=== PATIENT | male | born 2000 | race Caucasian/White ===

== ENCOUNTER 2021-02-08 03:59 | Emergency (ER) | payer OTHER, SELFPAY ==
--- NOTE | ~2021-02-08 | XR_ITS ---
EXAMINATION: XR ankle LT 2V DATE: 02/08/2021 04:55 INDICATION: Left ankle pain TECHNIQUE: Two views of the ankle were obtained. COMPARISON: None. FINDINGS: There is no fracture, dislocation, or subluxation. The bones, soft tissues, and joint space s are normal. IMPRESSION: 1. No acute osseous abnormality. Reviewed, dictated and finalized at location A.
[2021-02-08 04:02] VITALS: BP 140/88; PULSE 88; RESP 20; TEMP 36.6; O2SAT 98
--- NOTE | 2021-02-08 04:27 | ED.WOUNDLAC ---
HPI - Wound/Laceration General Chief Complaint: Burn/Smoke Inhalation Stated Complaint: burn Time Seen by Provider: 02/08/21 04:25 Source: patient Mode of arrival: ambulatory Limitations: no limitations History of Present Illness HPI narrative: Patient comes in after a fall at work. He works at [employer] and fell at work hitting his right forearm briefly on the grill. He has what appears to be a second degree burn to his right anterior forearm which extends nearly the full length of the forearm. Onset (ago): hour(s) Location: other (right forearm) Place: work Patient tetanus UTD: Yes Context: accidental Associated symptoms: pain Related Data Allergies Allergy/AdvReac Type Severity Reaction Status Date / Time Sulfa (Sulfonamide Allergy Mild Verified 09/12/13 10:28 Antibiotics) clindamycin Allergy Verified 09/12/13 11:08 bacitracin AdvReac Mild RASH, Verified 09/12/13 10:28 ITCHING gramicidin D AdvReac Mild RASH, Verified 09/12/13 10:28 ITCHING polymyxin B AdvReac Mild RASH, Verified 09/12/13 10:28 ITCHING BACITRACIN ZINC AdvReac Mild RASH, Uncoded 09/12/13 10:28 ITCHING NEOMYCIN SULFATE AdvReac Mild RASH, Uncoded 09/12/13 10:28 ITCHING POLYMYXIN B SULFATE AdvReac Mild RASH, Uncoded 09/12/13 10:28 ITCHING Review of Systems Constitutional: Constitutional: Reports no additional constitutional complaints Eyes: Eyes: Reports no additional eye complaints ENT: Reports system reviewed and no additional complaints, except as documented Cardiovascular: Cardiovascular: Reports no additional cardiovascular complaints Respiratory: Respiratory: Reports no additional respiratory complaints Gastrointestinal: Gastrointestinal: Reports no additional gastrointestinal complaints Genitourinary: Genitourinary: Reports no additional male genitourinary complaints Musculoskeletal: Musculoskeletal: Reports no additional musculoskeletal complaints Integumentary/Breasts: Skin/Breast: Reports system reviewed and no additional complaints, except as docu Neurologic: Reports system reviewed and no additional complaints, except as documented Psychiatric: Psychiatric: Reports no additional psychiatric complaints Endocrine: Endocrine: Reports no additional endocrine complaints Hematologic/Lymphatic: Hematologic/Lymphatic: Reports no additional hematologic/lymphatic complaints Allergic/Immunologic: Allergic/Immunologic: Reports no additional allergic/immunologic complaints PMFSH Past Medical History Medical History (Updated 02/08/21 @ 05:33 by Cyril Emanuel MD) No significant past medical history Surgical History Surgical History (Updated 02/08/21 @ 05:33 by Cyril Emanuel MD) No significant past surgical history Family History Family History (Updated 02/08/21 @ 05:37 by Cyril Emanuel MD) Mother Protein S deficiency Father CLL (chronic lymphocytic leukemia) Diabetes mellitus Hyperlipidemia Social History Social History (Updated 02/08/21 @ 05:37 by Cyril Emanuel MD) Smoking status: Never smoker Alcohol intake: never Substance use: never Living arrangements: with family Gender identity (if verbalized by the patient): Male Sexual Orientation (if Verbalized by the Patient): Straight or Heterosexual Exam Const: General: no acute distress and alert Orientation/consciousness: patient oriented x3 HENMT: Head: normal to inspection Ears: external ears normal General nose exam: Normal external nose present Mouth: Yes Normal oral and palatal mucosa present Throat: posterior oropharynx normal Eyes: Conjunctivae: conjunctivae normal Neck: Neck: normal visual inspection Chest: Chest palpation & inspection: normal inspection of the chest Resp: Effort & Inspection: normal respiratory effort Auscultation: clear to auscultation bilaterally Cardio: Rate: regular rate Rhythm: regular rhythm GI: GI Palp: Yes Soft to palpation (nontender) Back/Spine/Pelvis: Back: n
[2021-02-08] MEDS: SILVER SULFADIAZINE 1% CR 50 GM JAR (*BKC) 1 APPLIC TOPICAL (04:53)
[2021-02-08 05:17] VITALS: BP 140/88; PULSE 74; RESP 20; TEMP 36.6; O2SAT 98
== END 2021-02-08 05:19 | disposition home or self-care (01) ==
PROVIDERS: Emergency Provider Emergency Medicine
DX: T22.211A Burn of second degree of right forearm, initial encounter (principal); X19.XXXA Contact with other heat and hot substances, initial encounter
CPT/HCPCS: 73600; 99283; A9270

== ENCOUNTER 2021-05-13 15:58 | Emergency (ER) | payer OTHER, SELFPAY | END 2021-05-13 18:15 | disposition left against medical advice (07) | PROVIDERS: Emergency Provider Emergency Medicine; PCP Family Medicine | DX: Z53.21 Procedure and treatment not carried out due to patient leaving prior to being seen by health care provider (principal) | CPT/HCPCS: 99199 ==

== ENCOUNTER 2021-05-13 18:45 | Inpatient (IN) | payer OTHER, SELFPAY ==
--- NOTE | ~2021-05-13 | MR_ITS ---
EXAMINATION: MR cervical spine wo/w con DATE: 05/14/2021 12:42 INDICATION: Ataxia. TECHNIQUE: Magnetic resonance imaging (MRI) of the cervical spine was performed without and with 20 m L MultiHance intravenous contrast. Sequences included sagittal and axial T2-weighted FSE, sagittal T2 -weighted FS FSE, and sagittal and axial T1-weighted FSE. Postcontrast sequences included sagittal an d axial T1-weighted FS FSE. COMPARISON: None FINDINGS: Bone alignment is normal. Vertebral body heights and intervertebral disc heights are normal . There are multiple ill-defined lesions of increased T2-weighted signal intensity in the cervical sp inal cord without contrast enhancement. The following disc levels are specifically discussed: C2-C3: The disc does not extend beyond the endplate margin. There is no uncovertebral joint osteoarth ritis. There is mild bilateral facet joint osteoarthritis. There is no neural foraminal stenosis. The re is no central canal stenosis. C3-C4: There is a central extrusion. There is mild bilateral uncovertebral joint osteoarthritis. Ther e is no facet joint osteoarthritis. There is no neural foraminal stenosis. There is mild central gianna l stenosis. C4-C5: There is a right foraminal protrusion. There is mild right uncovertebral joint osteoarthritis. There is no facet joint osteoarthritis. There is mild right neural foraminal stenosis. There is no c entral canal stenosis. C5-C6: The disc does not extend beyond the endplate margin. There is no uncovertebral joint osteoarth ritis. There is mild right facet joint osteoarthritis. There is no neural foraminal stenosis. There i s no central canal stenosis. C6-C7: The disc does not extend beyond the endplate margin. There is no uncovertebral joint osteoarth ritis. There is no facet joint osteoarthritis. There is no neural foraminal stenosis. There is no yesica tral canal stenosis. C7-T1: The disc does not extend beyond the endplate margin. There is no uncovertebral joint osteoarth ritis. There is no facet joint osteoarthritis. There is no neural foraminal stenosis. There is no yesica tral canal stenosis. IMPRESSION: 1. Multiple nonenhancing spinal cord lesions, likely multiple sclerosis. Reviewed, dictated and finalized at location A.
--- NOTE | ~2021-05-13 | XR_ITS ---
EXAMINATION: XR lumbar puncture diagnostic DATE: 05/15/2021 12:10 INDICATION: Ataxia. Dizziness. TECHNIQUE: The procedure including the risks, benefits, and alternatives was discussed with the patie nt. Risks discussed included spinal headache, cerebrospinal fluid leak, bleeding, and infection. The patient understood the risks and agreed to proceed. A timeout was performed to verify the patient' s name, date of , and procedure to be performed. The skin overlying the L3-L4 level was prepped and draped in usual sterile fashion. Subcutaneous 1% lidocaine was used for local anesthesia. A 20 gauge spinal needle was advanced under fluoroscopic guidance. The needle was removed and the entry s ite was cleaned and dressed. There were no immediate complications. Fluoroscopy exposure time was 0. 1 minutes. The total number of images was 2. FINDINGS: Real-time fluoroscopy demonstrates the needle at the L3-L4 level. The opening pressure was 14 cm water (Normal range is variably defined as 6-20 cm water and up to 25 cm water in obese patient s. Pressure >25 cm water is one of the modified Dandy criteria for idiopathic intracranial hypertensi on). 14 mL of clear, colorless fluid was collected in 4 tubes. IMPRESSION: 1. Successful fluoro-guided lumbar puncture. Reviewed, dictated and finalized at location A.
--- NOTE | ~2021-05-13 | CT_ITS ---
EXAMINATION: CT brain wo con EXAM DATE: 05/13/2021 20:05 INDICATION: Dizziness for 4 months. Balance changes . TECHNIQUE: Spiral CT of the head was performed without contrast. Axial, coronal and sagittal images were reviewed. The dose-length product (DLP) for this examination was 681.00 mGy-cm. The exposure w as tailored according to patient size, and iterative reconstruction (ASIR) was used as additional dos e reduction technique. There is no prior study for comparison. FINDINGS: There is slightly low density white matter region measuring about 1 cm indicated on axial i mage 34, a non-specific finding with differential diagnosis including migraine headaches, demyelinati ng disease such as multiple sclerosis or acute disseminated encephalomyelitis (ADEM), vasculopathy, l yme's disease or reactive astrocytosis (gliosis) secondary to nonspecific etiology. A follow-up nonem ergent brain MRI without and with contrast should be obtained. No other regions of abnormal density. There is no acute intraparenchymal hemorrhage. No evidence of intraparenchymal brain mass lesion. No evidence of acute infarction. There is no mass effect or mid line shift. The ventricles are normal in size. There are no extra-axial collections. There are no acute calvarial fractures. The orbits are unremarkable. Soft tissue is unremarkable. The visualized sinuses and mastoid air cells are well aerated. IMPRESSION: Possible nonspecific white matter abnormality, some considerations above. Follow-up nonem ergent brain MRI without and with contrast should be obtained. Reviewed, dictated and finalized at location A. IMPRESSION: Possible nonspecific white matter abnormality, some considerations above. Follow-up nonemergent brain MRI without and with contrast should be obta ined.
--- NOTE | ~2021-05-13 | MR_ITS ---
EXAMINATION: MR brain/brain stem wo/w con DATE: 05/14/2021 12:41 INDICATION: Ataxia. TECHNIQUE: Magnetic resonance imaging (MRI) of the brain and brainstem was performed without and with 20 mL MultiHance intravenous contrast. Sequences included sagittal and axial T1-weighted FSE, axial diffusion-weighted FS EPI, axial T2*-weighted GRE, axial T2-weighted FLAIR Propeller, and axial T2-we ighted Propeller. Postcontrast sequences included axial, sagittal, and coronal T1-weighted FSE. Appar ent diffusion coefficient (ADC) maps were created. COMPARISON: Head CT 05/13/2021 FINDINGS: There is no acute ischemic infarct or intracranial hemorrhage. There are greater than 10 en hancing lesions in the brain with involvement of the deep cerebral white matter, right temporal subco rtical white matter, left side of the mónica, and right cerebellar white matter. The largest enhancing lesion measures 13 x 7 mm in the left frontoparietal deep white matter and demonstrates surrounding i ncreased T2-weighted signal intensity. There are many nonenhancing lesions of increased T2-weighted s ignal intensity involving the bilateral periventricular cerebral white matter and bilateral cerebella r white matter. The ventricles are normal in size. The orbits are normal. The paranasal sinuses are c lear. The mastoid air cells are normal. IMPRESSION: 1. Multifocal brain disease, likely multiple sclerosis. Reviewed, dictated and finalized at location A.
[2021-05-13 18:58] VITALS: BP 151/100; PULSE 74; RESP 17; TEMP 37; O2SAT 100
[2021-05-13] MEDS: MECLIZINE HCL 25 MG TABLET PO (20:19)
[2021-05-13 20:21] VITALS: BP 142/72; PULSE 72
[2021-05-13 20:23] VITALS: BP 153/90; PULSE 78
[2021-05-13 20:25] VITALS: BP 141/93; PULSE 77
--- NOTE | 2021-05-13 20:48 | ED.DIZZY ---
HPI - Dizziness General Chief Complaint: Dizziness Stated Complaint: dizziness Time Seen by Provider: 05/13/21 19:30 Source: patient Mode of arrival: ambulatory Limitations: no limitations History of Present Illness HPI Narrative: Patient presents with chief complaint of issues with dizziness and balance that has been going on since January. Patient's mother states that when she was walking beside the patient that she noticed he was not moving his feet and picking them up and down normally. Patient denies having any head injury. Patient states that first he thought it was due to taking allergy issues that was causing his dizziness when he goes to stand up or move. He denies any changes to his vision or hearing. Patient denies any nausea or vomiting. Patient denies any fever, chills, chest pain, shortness of breath, abdominal pain. Patient denies having any health issues other than seasonal allergies and wisdom teeth removal. Related Data Allergies Allergy/AdvReac Type Severity Reaction Status Date / Time Sulfa (Sulfonamide Allergy Mild Verified 09/12/13 10:28 Antibiotics) clindamycin Allergy Verified 09/12/13 11:08 bacitracin AdvReac Mild RASH, Verified 09/12/13 10:28 ITCHING gramicidin D AdvReac Mild RASH, Verified 09/12/13 10:28 ITCHING polymyxin B AdvReac Mild RASH, Verified 09/12/13 10:28 ITCHING BACITRACIN ZINC AdvReac Mild RASH, Uncoded 09/12/13 10:28 ITCHING NEOMYCIN SULFATE AdvReac Mild RASH, Uncoded 09/12/13 10:28 ITCHING POLYMYXIN B SULFATE AdvReac Mild RASH, Uncoded 09/12/13 10:28 ITCHING Review of Systems Review of Systems: CONSTITUTIONAL: Denies fever, chills, or sweats. EYES: Denies visual changes, redness, or discharge. ENT: Denies rhinorrhea, congestion, sore throat, or otalgia. CARDIOVASCULAR: Denies chest pain, palpitations, or edema. RESPIRATORY: Denies cough or dyspnea. GASTROINTESTINAL: Denies abdominal pain, nausea, vomiting, or diarrhea. GENITOURINARY: Denies dysuria or hematuria. SKIN: Denies rash or itching. MUSCULOSKELETAL: Denies back pain, joint pain, or myalgia. NEUROLOGIC: Reports dizziness and issues of balance denies headache, numbness, or weakness. PSYCHIATRIC: Denies anxiety or depression. PMFSH Past Medical History Medical History (Updated 05/13/21 @ 21:09 by Richar Rodriguez PA-C) No significant past medical history Surgical History Surgical History (Updated 02/08/21 @ 05:33 by Cyril Emanuel MD) No significant past surgical history Family History Family History (Updated 02/08/21 @ 05:37 by Cyril Emanuel MD) Mother Protein S deficiency Father CLL (chronic lymphocytic leukemia) Diabetes mellitus Hyperlipidemia Social History Social History (Updated 02/08/21 @ 05:37 by Cyril Emanuel MD) Smoking status: Never smoker Alcohol intake: never Substance use: never Gender identity (if verbalized by the patient): Male Sexual Orientation (if Verbalized by the Patient): Straight or Heterosexual Exam Narrative: GENERAL: Well-appearing, well-nourished, and in no acute distress. HEAD: Normocephalic, atraumatic. EYES: PERRLA and EOMI. ENT: Nares clear, no rhinorrhea or epistaxis. Mucous membranes moist. Oropharynx without tonsillar hypertrophy exudate or other lesions. Bilateral TMs pearly gaona nonbulging. No hemotympanum. NECK: Supple. No adenopathy or masses. Range of motion intact CHEST: Clear to auscultation. No respiratory distress. No wheezes rales or rhonchi HEART: Regular rate and rhythm. No murmur heard. Normal peripheral pulses. EXTREMITIES: Normal range of motion. No edema. SKIN: Warm, dry, no rash. NEURO: No SPEECH deficits. Alert and oriented x3. finger nose test normal. Patient displays difficulty with balance. He is able to ambulate. with pronator test patient bobs. PSYCH: Normal mood and affect. Course Vital Signs Vital signs: Vital Signs Temperature 98.6 F 05/13/21 18:58 Pulse Rate 74 05/13/21 18:58 Respirato
[2021-05-13 21:39] VITALS: BP 114/68; PULSE 60; RESP 16; O2SAT 100
--- NOTE | 2021-05-13 21:55 | PM.IMHP ---
H&P: HPI History of Present Illness Date/Time: 05/13/21 21:55 Chief Complaint: Dizziness Narrative: Patient presents to the ER with chief complaint of issues with dizziness and balance that has been going on since January. Patient had an injury in his left knee a while back and was considering this a reason for his balance issues. He reports he will feel dizzy on and off sometimes when he moves sometime 20 gets up from lying down position no specific pattern seen. Been having difficulty walking and having issues with balance and coordination on and off since January. He denies any other symptoms. No vision loss or hearing loss. No swallowing difficulties. No weakness in his arms or legs per se however drifting to the left side noted by his family. No fever chills, chest pain, shortness of breath or abdominal pain. He has never been diagnosed with any other illness but does not see of regular primary care. A CT scan of the head done in the ER today revealed nonspecific white matter changes suggestive of demyelinating disease and hence getting admitted for further evaluation after discussion with neurologist on-call. Review of Systems Review of Systems: - CONSTITUTIONAL: Denies weight loss, fever and chills. - HEENT: Denies changes in vision and hearing - RESPIRATORY: Denies SOB and cough. - CV: Denies palpitations and CP. - GI: Denies abdominal pain, nausea, vomiting and diarrhea. - : Denies dysuria and urinary frequency. - MSK: Denies myalgia and joint pain. - SKIN: Denies rash and pruritus. - NEUROLOGICAL: Denies headache and syncope. - PSYCHIATRIC: Denies recent changes in mood. Denies anxiety and depression. All systems reviewed & are unremarkable except as noted in HPI and below Constitutional: Constitutional: Reports fatigue and Reports weakness Neurologic: Reports weakness Endocrine: Endocrine: Reports fatigue [facility] Past Medical History Medical History (Updated 05/13/21 @ 22:04 by Bhaskar Ramirez MD) No significant past medical history Surgical History Surgical History (Updated 02/08/21 @ 05:33 by Cyril Emanuel MD) No significant past surgical history Family History Family History (Updated 02/08/21 @ 05:37 by Cyril Emanuel MD) Mother Protein S deficiency Father CLL (chronic lymphocytic leukemia) Diabetes mellitus Hyperlipidemia Social History Social History (Updated 02/08/21 @ 05:37 by Cyril Emanuel MD) Smoking status: Never smoker Alcohol intake: never Substance use: never Gender identity (if verbalized by the patient): Male Sexual Orientation (if Verbalized by the Patient): Straight or Heterosexual Meds Home Medications and Allergies Home Medications Medication Instructions Recorded Confirmed Type silver sulfadiazine [Silvadene] 1 applic TOPICAL DAILY #50 g 02/08/21 Rx tramadol 50 mg PO Q6H PRN #8 tablet 02/08/21 Rx Allergies Allergy/AdvReac Type Severity Reaction Status Date / Time Sulfa (Sulfonamide Allergy Mild Verified 09/12/13 10:28 Antibiotics) clindamycin Allergy Verified 09/12/13 11:08 bacitracin AdvReac Mild RASH, Verified 09/12/13 10:28 ITCHING gramicidin D AdvReac Mild RASH, Verified 09/12/13 10:28 ITCHING polymyxin B AdvReac Mild RASH, Verified 09/12/13 10:28 ITCHING BACITRACIN ZINC AdvReac Mild RASH, Uncoded 09/12/13 10:28 ITCHING NEOMYCIN SULFATE AdvReac Mild RASH, Uncoded 09/12/13 10:28 ITCHING POLYMYXIN B SULFATE AdvReac Mild RASH, Uncoded 09/12/13 10:28 ITCHING Vital Signs Vital Signs - 24 hr 05/13/21 18:58 05/13/21 20:21 05/13/21 20:23 Temperature 98.6 F Pulse Rate 74 72 78 Respiratory Rate 17 Blood Pressure 151/100 H 142/72 H 153/90 H Pulse Oximetry 100 05/13/21 20:25 05/13/21 21:39 Temperature Pulse Rate 77 60 Respiratory Rate 16 Blood Pressure 141/93 H 114/68 Pulse Oximetry 100 Exam Narrative: GENERAL: Well-appearing, well-nourished, and in no acute distr
[2021-05-13 22:10] VITALS: BP 143/82; PULSE 68; RESP 20; TEMP 36.9; O2SAT 97; BMI 38.7
--- NOTE | 2021-05-13 22:48 | PC.NURSE ---
This patient, Marvin Rubio, was admitted to [facility] Surg Room 316-01. Patient/family oriented to hospital policies and general routines including ID bracelet, bed and alarms, visiting hours, pain management, procedures, bathroom and other care routines, personal items, smoking policy, room service/diet, and visiting hours. Information on how to activate the Rapid Response Team has been discussed. Patient/Family are encouraged to report perceived risks to care and to ask questions if they do not understand what they are told or what they should do.
[2021-05-14 05:28] VITALS: BP 100/69; PULSE 59; RESP 18; TEMP 36.4; O2SAT 99
[2021-05-14 07:14] LABS: Albumin Level 4.1 g/dL (3.5-5.1); Anion Gap 8 mmol/L (8-16); Blood Urea Nitrogen 18 mg/dL (9-20); Calcium 8.8 mg/dL (8.4-10.2); Carbon Dioxide 27 mmol/L (22-30); Chloride 107 mmol/L (98-107); Creatine Kinase 75 U/L (55-170); Estimated CRCL calculation 168 ml/min; Estimated Glomerular Filt Rate > 60; Glucose 95 mg/dL (65-110); Phosphorus 4.8 mg/dL (2.5-4.5); Potassium 3.9 mmol/L (3.4-5.0); Sodium 142 mmol/L (137-145)
[2021-05-14 09:48] VITALS: BP 135/74; PULSE 71; RESP 18; TEMP 36.1; O2SAT 100
--- NOTE | 2021-05-14 12:19 | PM.IMPN ---
Progress Note: A&P Assessment and Plan (1) Neurological abnormality: Code(s): R29.818 - Other symptoms and signs involving the nervous system Status: Acute Assessment and Plan: Pt is having MRI brain to rule out demyelination diseases, pt is awaiting neurology consult. Recent CT scan shows - There is slightly low density white matter region measuring about 1 cm indicated on axial image 34, a non-specific finding with differential diagnosis including migraine headaches, demyelinating disease such as multiple sclerosis or acute disseminated encephalomyelitis (ADEM), vasculopathy, lyme's disease or reactive astrocytosis (gliosis) secondary to nonspecific etiology. (2) White matter changes: Status: Acute (3) Ataxia: Code(s): R27.0 - Ataxia, unspecified Status: Acute Assessment and Plan: Mild ataxia and dizziness no temp instabilities or paraesthesia mentioned (4) Dizziness: Code(s): R42 - Dizziness and giddiness Status: Acute Assessment and Plan: Mild but recurrent Subjective Date/time seen: 05/14/21 12:19 Interval history: Pt admitted with dizziness and ataxia, pt has strong FH of MS. Pt had mri brain today awaiting results, await neurology consult and possible LP. Review of Systems Review of Systems: All systems reviewed & are unremarkable except as noted in HPI and below Exam Narrative: GENERAL: younger man EYES: PERRLA and EOMI. NECK: Supple. No adenopathy or masses. Range of motion intact CHEST: Clear to auscultation. No respiratory distress. No wheezes rales or rhonchi HEART: Regular rate and rhythm. No murmur heard. Normal peripheral pulses. EXTREMITIES: Normal range of motion. No edema. SKIN: Warm, dry, no rash. NEURO: No SPEECH deficits. Alert and oriented x3. PSYCH: Normal mood and affect. Objective Data Vital Signs Vital Signs: Vital Signs - 24 hr 05/13/21 18:58 05/13/21 20:21 05/13/21 20:23 Temperature 37.0 C Pulse Rate 74 72 78 Respiratory Rate 17 Blood Pressure 151/100 H 142/72 H 153/90 H Pulse Oximetry 100 05/13/21 20:25 05/13/21 21:39 05/13/21 22:10 Temperature 36.9 C Pulse Rate 77 60 68 Respiratory Rate 16 20 Blood Pressure 141/93 H 114/68 143/82 H Pulse Oximetry 100 97 05/14/21 05:28 05/14/21 09:48 Temperature 36.4 C 36.1 C L Pulse Rate 59 L 71 Respiratory Rate 18 18 Blood Pressure 100/69 135/74 Pulse Oximetry 99 100 Intake/Output Intake/Output: Intake & Output 05/11/21 05/12/21 05/13/21 05/14/21 23:59 23:59 23:59 23:59 Intake Total 250 Balance 250 Meds/Results Radiology Results: ITS Impressions Head CT 05/13/21 20:10 IMPRESSION: Possible nonspecific white matter abnormality, some considerations above. Follow-up nonemergent brain MRI without and with contrast should be obtained. Labs Labs: Laboratory Results - last 24 hr 05/14/21 06:53 Sodium 142 Potassium 3.9 Chloride 107 Carbon Dioxide 27 Anion Gap 8 BUN 18 Creatinine 0.90 Estim Creat Clear Calc 168 Estimated GFR > 60 Glucose 95 Calcium 8.8 Phosphorus 4.8 H Total Creatine Kinase 75 Albumin 4.1
[2021-05-14 14:30] VITALS: BP 133/67; PULSE 81; RESP 18; TEMP 36.2; O2SAT 99
[2021-05-14] MEDS: ACETAMINOPHEN 325 MG TABLET 650 MG PO (14:58)
--- NOTE | 2021-05-14 16:40 | WPDNEURCNPN ---
Assessment and Plan Additional Plan treatment as planned Consult date: 05/22/21 Time Seen: 16:40 HPI: Marvin Rubio is a 21 year old male has been admitted to the [facility] through the emergency room where he reported with complaints of dizziness and difficulties in maintaining the balance since January of this year as per the information available from the mother in the emergency room while she was walking beside the patient she noted he was not moving his feet and picking them up and down normal. There was no history of recent or remote head trauma initially it was attributed to the allergy issues but it was causing him to become dizzy when he was standing up or moving around he gave no history of any visual difficulties or hearing difficulties no bowel or bladder difficulties. Reportedly he is allergic to sulfa clindamycin BC trace in gramicidin polymyxin neomycin polymyxin B. his mother has protein S deficiency father has history of chronic lymphocytic leukemia with diabetes mellitus and hyperlipidemia. Patient himself is a never smoker never drinks an initial examination in the emergency room revealed him to be ataxic he was admitted through the emergency room with the further intervention particularly including the MRI of the brain and cervical spine. Available studies up until now include the MRI of cervical spine which documents multiple nonenhancing his spinal cord lesions and MRI of the brain also revealed greater than 10 enhancing lesions in the brain with involvement of the deep cerebral white matter right temporal and subcortical white matter left side of the mónica and right cerebellar white matter the largest enhancing lesion measures 13x7mm in the left frontoparietal deep white matter remaining nonenhancing lesions of T2 increased density involving the cerebral white matter and bilateral cerebellar white matter the ventricles are normal in the size all these lesions are suggestive of underlying multiple sclerosis, routine blood studies are normal and we have suggested to have the spinal fluid studies which will be carried out further Review of Systems Review of Systems: All systems reviewed & are unremarkable except as noted in HPI and below PMFSH Past Medical History Medical History No significant past medical history Surgical History Surgical History No significant past surgical history Family History Family History Mother Protein S deficiency Father CLL (chronic lymphocytic leukemia) Diabetes mellitus Hyperlipidemia Social History Social History Smoking status: Never smoker Alcohol intake: never Substance use: never Gender identity (if verbalized by the patient): Male Sexual Orientation (if Verbalized by the Patient): Straight or Heterosexual Spiritual care concerns: No Meds Home Medications and Allergies Home Medications Medication Instructions Recorded Confirmed Type methylprednisolone [Medrol (Thomas)] See Rx Instructions .ROUTE 05/19/21 Rx .COMPLEX #21 ea cetirizine 10 mg capsule 10 mg PO DAILY PRN 05/21/21 History Allergies Allergy/AdvReac Type Severity Reaction Status Date / Time Sulfa (Sulfonamide Allergy Mild Hives Verified 05/14/21 11:00 Antibiotics) clindamycin Allergy Unknown Verified 05/14/21 11:00 bacitracin AdvReac Mild RASH, Verified 05/14/21 11:00 ITCHING gramicidin D AdvReac Mild RASH, Verified 05/14/21 11:00 ITCHING neomycin AdvReac Mild Rash,Itchin Verified 05/14/21 14:50 g polymyxin B AdvReac Mild RASH, Verified 05/14/21 11:00 ITCHING Vital Signs Vital Signs - 24 hr 05/13/21 18:58 05/13/21 20:21 05/13/21 20:23 Temperature 37.0 C Pulse Rate 74 72 78 Respiratory Rate 17 Blood Pressure 151/100 H 142/72 H 153/90 H Pul
--- NOTE | 2021-05-14 16:43 | PC.NURSE ---
On 05/14/21, the student, Ligia Ugarte, provided care and [id number]. I have reviewed the student's documentation and agree with the findings.
[2021-05-14 21:08] VITALS: PULSE 81; RESP 18; O2SAT 99
[2021-05-14 21:52] VITALS: BP 136/80; PULSE 64; RESP 20; TEMP 36.5; O2SAT 98
[2021-05-15 05:42] VITALS: BP 113/72; PULSE 59; RESP 18; TEMP 36.3; O2SAT 100
[2021-05-15 09:39] LABS: INR 0.9; Prothrombin Time 11.6 Seconds (11.1-14.7)
[2021-05-15 09:40] LABS: Partial Thromboplastin Time 29.6 SECONDS (22.3-36.8)
[2021-05-15 11:15] VITALS: BP 161/94; PULSE 95; RESP 20; O2SAT 98
[2021-05-15 11:55] VITALS: BP 139/80; PULSE 79; RESP 16; O2SAT 99
[2021-05-15 12:07] LABS: Glucose CSF 62 mg/dL (40-70); Total Protein CSF 52 mg/dL (12-60)
--- NOTE | 2021-05-15 12:32 | PM.IMPN ---
Progress Note: A&P Assessment and Plan (1) Neurological abnormality: Code(s): R29.818 - Other symptoms and signs involving the nervous system Status: Acute Assessment and Plan: Pt is having MRI brain to rule out demyelination diseases, Pt had mri brain awaiting LP, pt seen neurology. Mri shows - Multifocal brain disease, likely multiple sclerosis. Pt can start iv steroids after his LP as per neurologist. Recent CT scan shows - There is slightly low density white matter region measuring about 1 cm indicated on axial image 34, a non-specific finding with differential diagnosis including migraine headaches, demyelinating disease such as multiple sclerosis or acute disseminated encephalomyelitis (ADEM), vasculopathy, lyme's disease or reactive astrocytosis (gliosis) secondary to nonspecific etiology. (2) White matter changes: Status: Acute (3) Ataxia: Code(s): R27.0 - Ataxia, unspecified Status: Acute Assessment and Plan: Mild ataxia and dizziness no temp instabilities or paraesthesia mentioned (4) Dizziness: Code(s): R42 - Dizziness and giddiness Status: Acute Assessment and Plan: Mild but recurrent Subjective Date/time seen: 05/15/21 12:32 Interval history: Pt admitted with dizziness and ataxia, pt has strong FH of MS. Pt had mri brain today showing Multifocal brain disease, likely multiple sclerosis, pt awaiting to have LP, pt seen by neurology, pt to start on iv steroids tonite. Pt has some dizziness today. Review of Systems Review of Systems: All systems reviewed & are unremarkable except as noted in HPI and below Exam Narrative: GENERAL: Younger man NECK: Supple. No adenopathy or masses. Range of motion intact CHEST: Clear to auscultation. No respiratory distress. No wheezes rales or rhonchi HEART: Regular rate and rhythm. No murmur heard. Normal peripheral pulses. EXTREMITIES: Normal range of motion. No edema. SKIN: Warm, dry, no rash. NEURO: No speech deficits. Alert and oriented x3. Ataxia when walking PSYCH: Normal mood and affect. Objective Data Vital Signs Vital Signs: Vital Signs - 24 hr 05/14/21 14:30 05/14/21 21:08 05/14/21 21:52 Temperature 36.2 C L 36.5 C Pulse Rate 81 81 64 Respiratory Rate 18 18 20 Blood Pressure 133/67 136/80 Pulse Oximetry 99 99 98 05/15/21 05:42 05/15/21 11:15 05/15/21 11:55 Temperature 36.3 C L Pulse Rate 59 L 95 79 Respiratory Rate 18 20 16 Blood Pressure 113/72 161/94 H 139/80 Pulse Oximetry 100 98 99 Intake/Output Intake/Output: Intake & Output 05/12/21 05/13/21 05/14/21 05/15/21 23:59 23:59 23:59 23:59 Intake Total 1220 790 Balance 1220 790 Meds/Results Medications: Active Medications Generic Name Dose Route Start Last Admin Trade Name Freq PRN Reason Stop Dose Admin Acetaminophen 650 mg 05/14/21 14:48 05/14/21 14:58 Acetaminophen 325 Mg Tablet PO 650 mg Q6H PRN Administration Mild Pain (1-3) or Fever Radiology Results: ITS Impressions Head CT 05/13/21 20:10 IMPRESSION: Possible nonspecific white matter abnormality, some considerations above. Follow-up nonemergent brain MRI without and with contrast should be obtained. Brain MRI 05/14/21 12:56 IMPRESSION: 1. Multifocal brain disease, likely multiple sclerosis. Cervical Spine MRI 05/14/21 13:05 IMPRESSION: 1. Multiple nonenhancing spinal cord lesions, likely multiple sclerosis. Lumbar Puncture Fluoroscopy 05/15/21 12:20 IMPRESSION: 1. Successful fluoro-guided lumbar puncture. Labs Labs: Laboratory Results - last 24 hr 05/15/21 05/15/21 09:17 11:16 PT 11.6 INR 0.9 APTT 29.6 CSF Glucose 62 CSF Total Protein 52
[2021-05-15 12:59] LABS: Appearance CSF Clear (Clear); CSF source CSF; Color CSF Colorless (Colorless); Nucleated Cell CSF 70 /uL (0-5); Red Blood Cell CSF 0 (0-2)
[2021-05-15 13:00] LABS: Lymphocytes CSF 100 % (40-80)
[2021-05-15 14:00] VITALS: BP 124/69; PULSE 76; RESP 18; TEMP 35.8; O2SAT 100
--- NOTE | 2021-05-15 14:00 | PC.NURSE ---
Patient stayed supine 1200- 2pm.
[2021-05-15] MEDS: ACETAMINOPHEN 325 MG TABLET 650 MG PO (14:33)
--- NOTE | 2021-05-15 15:33 | WPDNEURCNPN ---
Assessment and Plan Additional Plan young man withgait dysfunction and abnormal MRIs most likely demyelinating disease because the MRI is severely abnormal will obtain the spinal fluid studies considering the treatment Consult date: 05/15/21 Time Seen: 11:00 HPI: Marvin Rubio is a 21 year old male [facility] Past Medical History Medical History No significant past medical history Surgical History Surgical History No significant past surgical history Family History Family History Mother Protein S deficiency Father CLL (chronic lymphocytic leukemia) Diabetes mellitus Hyperlipidemia Social History Social History (Updated 02/08/21 @ 05:37 by Cyril Emanuel MD) Smoking status: Never smoker Alcohol intake: never Substance use: never Gender identity (if verbalized by the patient): Male Sexual Orientation (if Verbalized by the Patient): Straight or Heterosexual Spiritual care concerns: No Meds Home Medications and Allergies Home Medications Medication Instructions Recorded Confirmed Type No Home Medications 05/14/21 05/14/21 History Allergies Allergy/AdvReac Type Severity Reaction Status Date / Time Sulfa (Sulfonamide Allergy Mild Hives Verified 05/14/21 11:00 Antibiotics) clindamycin Allergy Unknown Verified 05/14/21 11:00 bacitracin AdvReac Mild RASH, Verified 05/14/21 11:00 ITCHING gramicidin D AdvReac Mild RASH, Verified 05/14/21 11:00 ITCHING neomycin AdvReac Mild Rash,Itchin Verified 05/14/21 14:50 g polymyxin B AdvReac Mild RASH, Verified 05/14/21 11:00 ITCHING Vital Signs Vital Signs - 24 hr 05/14/21 21:08 05/14/21 21:52 05/15/21 05:42 Temperature 36.5 C 36.3 C L Pulse Rate 81 64 59 L Respiratory Rate 18 20 18 Blood Pressure 136/80 113/72 Pulse Oximetry 99 98 100 05/15/21 11:15 05/15/21 11:55 05/15/21 14:00 Temperature 35.8 C L Pulse Rate 95 79 76 Respiratory Rate 20 16 18 Blood Pressure 161/94 H 139/80 124/69 Pulse Oximetry 98 99 100 Exam Const: General: cooperative, comfortable, no acute distress, alert, awake, anxious, tired appearing and uncomfortable Nutritional Appearance: overweight Orientation/consciousness: oriented to person, oriented to place and oriented to time Limitations: physical limitations HENMT: Head: normal to inspection and normocephalic Ears: hearing grossly normal bilaterally, external ears normal and mastoids normal General nose exam: Normal external nose present Face and sinus: normal facial exam Mouth: Yes Normal oral and palatal mucosa present Throat: posterior oropharynx normal Eyes: General: appearance normal, both eyes and all related structures Visual Lang: normal visual lang by confrontation Alignment and Position: alignment normal and position normal Periorbital: periorbital findings normal Eyelids: eyelids normal Conjunctivae: conjunctivae normal Sclera: sclerae normal Cornea: corneas normal Pupils: Equal, round and reactive pupils present and Pupils normal by confrontation EOM: EOM abnormal (end point horizontal nystagmus) Neck: Neck: normal visual inspection, full ROM and no lymphadenopathy Carotids: normal carotid upstroke Lymphatic: no lymphadenopathy noted Resp: Effort & Inspection: normal respiratory effort and able to speak in complete sentences Auscultation: clear to auscultation bilaterally Cardio: Jugular venous distension: no JVD Rate: regular rate Rhythm: regular rhythm GI: Inspection: obesity Auscultation: normal bowel sounds Skin: General skin exam: no rashes or lesions noted Neuro: General: oriented to person, oriented to place and oriented to time Cranial nerves: Yes CN's II-XII intact bilaterally, Yes Equal, round and reactive pupils present, Yes Bilaterally intact EOM present, Yes Nystagmus not present (yes
[2021-05-15] MEDS: methylPREDNISolone SOD SUCC 1,000 MG in DEXTROSE 5% 100 ML 100 MG IVPB (16:41)
[2021-05-15 20:00] VITALS: BP 117/86; PULSE 111; RESP 16; TEMP 36.1; O2SAT 91
[2021-05-15 20:41] VITALS: PULSE 99; RESP 16; O2SAT 96
[2021-05-16 01:21] VITALS: PULSE 99; O2SAT 96
[2021-05-16 06:00] VITALS: BP 144/77; PULSE 91; RESP 16; TEMP 36.3; O2SAT 99
[2021-05-16] MEDS: methylPREDNISolone SOD SUCC 1,000 MG in DEXTROSE 5% 100 ML 200 MG IVPB (08:33)
--- NOTE | 2021-05-16 10:27 | WPDNEUROPN ---
Subjective Date/time seen: 21 years old has been admitted to the hospital for the complaints of gait dysfunction with subsequent documentation of abnormal MRI consistent with the active demyelinating disease patient has already undergone spinal fluid studies the results are pending though the cell count is definitely elevated. The rest of the findings are still awaited considering that he has very abnormal brain MRI and cervical MRI as well the Medrol intravenous has been started for the next 5 days and subsequently he will be started on the treatment depending what the insurance covers Review of Systems Review of Systems: All systems reviewed & are unremarkable except as noted in HPI and below Exam Const: General: cooperative, comfortable, no acute distress, alert and awake Nutritional Appearance: obese Orientation/consciousness: oriented to person, oriented to place and oriented to time Limitations: no limitations HENMT: Head: normal to inspection and normocephalic Ears: hearing grossly normal bilaterally General nose exam: Normal external nose present Face and sinus: normal facial exam Mouth: Yes Normal oral and palatal mucosa present Eyes: General: appearance normal, both eyes and all related structures Visual [place]: normal visual [place] by confrontation Alignment and Position: alignment normal Periorbital: periorbital findings normal Eyelids: eyelids normal Conjunctivae: conjunctivae normal Sclera: sclerae normal Cornea: corneas normal Pupils: Equal, round and reactive pupils present EOM: EOMs intact bilaterally Neck: Neck: normal visual inspection, full ROM and no lymphadenopathy Thyroid: thyroid normal Carotids: normal carotid upstroke Resp: Effort & Inspection: normal respiratory effort Auscultation: clear to auscultation bilaterally Cardio: Jugular venous distension: no JVD Rate: regular rate Rhythm: regular rhythm GI: Inspection: normal to inspection Neuro: General: oriented to person, oriented to place, oriented to time, patient oriented x3, tone normal, moves all extremities, Normal light touch and pain sensation, no meningeal signs, CN's II-XI intact bilaterally, decrease sensation to monofilament, deep tendon reflexes 2+ bilaterally and Unable to assess gait Speech: normal speech Motor exam (neuro): Pronator motor function not present, No tremor noted, Normal motor muscle tone present throughout, Motor abnormalities not present and Abnormal motor strength present Sensory Exam: Sensory deficit (Neuro) ( lower extremities) Deep tendon reflexes (DTR's): Right triceps reflex intensity grade: 1+, Left triceps reflex intensity grade: 1+, Rt Biceps (C5, C6): 1+, Left biceps reflex intensity grade: 1+, Right brachioradialis reflex intensity grade: 1+, Left brachioradialis reflex intensity grade: 1+, Right patellar reflex intensity grade: 1+, Left patellar reflex intensity grade: 1+, Right ankle reflex intensity grade: 1+ and Left ankle reflex intensity grade: 1+ Coordination: [id number] test normal Extrem: General: full ROM Psych: Appearance: disheveled Mental Status: other ( in appropriate) Speech and movement: Normal speech and movement present Affect: Indifferent affect present Attitude: cooperative Thought process: Normal thought process present Thought content: Yes Normal thought content present Insight: Fair insight present (Psych) Judgement: Fair judgement present (Psych) Objective Data Vital Signs Vital Signs: Vital Signs - 24 hr 05/15/21 11:15 05/15/21 11:55 05/15/21 14:00 Temperature 35.8 C L Pulse Rate 95 79 76 Respiratory Rate 20 16 18 Blood Pressure 161/94 H 139/80 124/69 Pulse Oximetry 98 99 100 05/15/21 20:00 05/15/21 20:41 05/16/21 01:21 Temperature 36.1 C L Pulse Rate 111 H 99 99 Respiratory Rate 16 16 Blood Pressure 117/86 Pulse Oximetry 91 96 96 05/16/21 06:00 Temperature 36.3 C L Pulse Rate 91 Respiratory Rate 16 Blood Pressure 144/77 H Pulse Oximetry 99
--- NOTE | 2021-05-16 11:11 | PM.IMPN ---
Progress Note: A&P Assessment and Plan (1) Neurological abnormality: Code(s): R29.818 - Other symptoms and signs involving the nervous system Status: Acute Assessment and Plan: Pt is having MRI brain to rule out demyelination diseases, Pt had mri brain awaiting LP results, pt seen neurology. Mri shows - Multifocal brain disease, likely multiple sclerosis. Pt started on iv steroids. Pt will need 5 days of steroids in total Recent CT scan shows - There is slightly low density white matter region measuring about 1 cm indicated on axial image 34, a non-specific finding with differential diagnosis including migraine headaches, demyelinating disease such as multiple sclerosis or acute disseminated encephalomyelitis (ADEM), vasculopathy, lyme's disease or reactive astrocytosis (gliosis) secondary to nonspecific etiology. (2) White matter changes: Status: Acute (3) Ataxia: Code(s): R27.0 - Ataxia, unspecified Status: Acute Assessment and Plan: Mild ataxia and dizziness no temp instabilities or paraesthesia mentioned (4) Dizziness: Code(s): R42 - Dizziness and giddiness Status: Acute Assessment and Plan: Mild but recurrent Subjective Date/time seen: 05/16/21 11:11 Interval history: Pt admitted with dizziness and ataxia, pt has strong FH of MS. Pt had mri brain today showing Multifocal brain disease, likely multiple sclerosis, LP results are still pending, pt seen by neurology, pt to started on iv steroids. Pt will need 5 days of steroids iv. Pt still ataxic when he walks. otherwise no other symptoms. Review of Systems Review of Systems: All systems reviewed & are unremarkable except as noted in HPI and below Exam Narrative: GENERAL: Younger man NECK: Supple. CHEST: Clear to auscultation. No respiratory distress. No wheezes rales or rhonchi HEART: Regular rate and rhythm. No murmur heard. Normal peripheral pulses. EXTREMITIES: Normal range of motion. No edema. SKIN: Warm, dry, no rash. NEURO: No speech deficits. Alert and oriented x3. Ataxia when walking PSYCH: Normal mood and affect. Objective Data Vital Signs Vital Signs: Vital Signs - 24 hr 05/15/21 11:15 05/15/21 11:55 05/15/21 14:00 Temperature 35.8 C L Pulse Rate 95 79 76 Respiratory Rate 20 16 18 Blood Pressure 161/94 H 139/80 124/69 Pulse Oximetry 98 99 100 05/15/21 20:00 05/15/21 20:41 05/16/21 01:21 Temperature 36.1 C L Pulse Rate 111 H 99 99 Respiratory Rate 16 16 Blood Pressure 117/86 Pulse Oximetry 91 96 96 05/16/21 06:00 Temperature 36.3 C L Pulse Rate 91 Respiratory Rate 16 Blood Pressure 144/77 H Pulse Oximetry 99 Intake/Output Intake/Output: Intake & Output 05/13/21 05/14/21 05/15/21 05/16/21 23:59 23:59 23:59 23:59 Intake Total 1220 1800 540 Balance 1220 1800 540 Meds/Results Medications: Active Medications Generic Name Dose Route Start Last Admin Trade Name Freq PRN Reason Stop Dose Admin Acetaminophen 650 mg 05/14/21 14:48 05/15/21 14:33 Acetaminophen 325 Mg Tablet PO 650 mg Q6H PRN Administration Mild Pain (1-3) or Fever Methylprednisolone Sodium 100 mls @ 200 mls/hr 05/15/21 15:48 05/16/21 09:05 Succinate 1,000 mg/ Dextrose IVPB Infused QAM NATHEN Infusion Radiology Results: ITS Impressions Head CT 05/13/21 20:10 IMPRESSION: Possible nonspecific white matter abnormality, some considerations above. Follow-up nonemergent brain MRI without and with contrast should be obtained. Brain MRI 05/14/21 12:56 IMPRESSION: 1. Multifocal brain disease, likely multiple sclerosis. Cervical Spine MRI 05/14/21 13:05 IMPRESSION: 1. Multiple nonenhancing spinal cord lesions, likely multiple sclerosis. Lumbar Puncture Fluoroscopy 05/15/21 12:20 IMPRESSION: 1. Successful fluoro-guided lumbar puncture. Labs Labs: Laboratory Results - last 24 hr 05/15/21 05/15/21 11:1
[2021-05-16 14:58] VITALS: BP 136/62; PULSE 82; RESP 14; TEMP 36.6; O2SAT 98
[2021-05-16] MEDS: ACETAMINOPHEN 325 MG TABLET 650 MG PO (19:52)
[2021-05-16 22:00] VITALS: BP 126/66; PULSE 78; RESP 18; TEMP 36.1; O2SAT 94
[2021-05-17 06:00] VITALS: BP 122/62; PULSE 75; RESP 18; TEMP 35.6; O2SAT 96
[2021-05-17] MEDS: methylPREDNISolone SOD SUCC 1,000 MG in DEXTROSE 5% 100 ML 200 MG IVPB (08:14)
[2021-05-17 14:00] VITALS: BP 150/82; PULSE 84; RESP 18; TEMP 36.3; O2SAT 96
--- NOTE | 2021-05-17 14:13 | PM.IMPN ---
Progress Note: A&P Assessment and Plan (1) Neurological abnormality: Code(s): R29.818 - Other symptoms and signs involving the nervous system Status: Acute Assessment and Plan: MRI brain shows - Multifocal brain disease, likely multiple sclerosis. MRI of the cervical spine showed multifocal nonenhancing lesion likely multiple sclerosis. Lumbar puncture was performed with the studies pending. Pt started on iv steroids. Pt will need 5 days of steroids in total Neurology Service is following. Recent CT scan shows - There is slightly low density white matter region measuring about 1 cm indicated on axial image 34, a non-specific finding with differential diagnosis including migraine headaches, demyelinating disease such as multiple sclerosis or acute disseminated encephalomyelitis (ADEM), vasculopathy, lyme's disease or reactive astrocytosis (gliosis) secondary to nonspecific etiology. (2) White matter changes: Status: Acute Assessment and Plan: Likely multiple sclerosis (3) Ataxia: Code(s): R27.0 - Ataxia, unspecified Status: Acute Assessment and Plan: Mild ataxia and dizziness likely secondary to multiple sclerosis (4) Dizziness: Code(s): R42 - Dizziness and giddiness Status: Acute Assessment and Plan: Likely secondary to multiple sclerosis Additional Plan Family history of multiple sclerosis in mother's sisters DVT prophylaxis: SCDs and subQ heparin Patient admitted under observation status Subjective Date/time seen: 05/17/21 14:13 Interval history: 21 M who was admitted with dizziness and ataxia, pt has strong FH of MS. Pt had mri brain and cervical spine today showing Multifocal brain disease, likely multiple sclerosis, LP results are still pending. Patient was started on high-dose steroid for 5 days. He is feeling better. He still mildly ataxic. He denied have any focal neurological weakness. He denied have any visual symptoms or headache. Review of Systems Review of Systems: All systems reviewed & are unremarkable except as noted in HPI and below Exam Narrative: GENERAL: Younger man not in distress NECK: Supple. CHEST: Clear to auscultation. No respiratory distress. No wheezes rales or rhonchi HEART: Regular rate and rhythm. No murmur heard. Normal peripheral pulses. EXTREMITIES: Normal range of motion. No edema. SKIN: Warm, dry, no rash. NEURO: No speech deficits. Alert and oriented x3. PSYCH: Normal mood and affect. Objective Data Vital Signs Vital Signs: Vital Signs - 24 hr 05/16/21 14:58 05/16/21 22:00 05/17/21 06:00 Temperature 36.6 C 36.1 C L 35.6 C L Pulse Rate 82 78 75 Respiratory Rate 14 18 18 Blood Pressure 136/62 126/66 122/62 Pulse Oximetry 98 94 96 05/17/21 14:00 Temperature 36.3 C L Pulse Rate 84 Respiratory Rate 18 Blood Pressure 150/82 H Pulse Oximetry 96 Intake/Output Intake/Output: Intake & Output 05/14/21 05/15/21 05/16/21 05/17/21 23:59 23:59 23:59 23:59 Intake Total 1220 1800 2100 1130 Balance 1220 1800 2100 1130 Meds/Results Medications: Active Medications Generic Name Dose Route Start Last Admin Trade Name Freq PRN Reason Stop Dose Admin Acetaminophen 650 mg 05/14/21 14:48 05/16/21 19:52 Acetaminophen 325 Mg Tablet PO 650 mg Q6H PRN Administration Mild Pain (1-3) or Fever Methylprednisolone Sodium 100 mls @ 200 mls/hr 05/15/21 15:48 05/17/21 08:45 Succinate 1,000 mg/ Dextrose IVPB Infused QAM NATHEN Infusion Radiology Results: ITS Impressions Head CT 05/13/21 20:10 IMPRESSION: Possible nonspecific white matter abnormality, some considerations above. Follow-up nonemergent brain MRI without and with contrast should be obtained. Brain MRI 05/14/21 12:56 IMPRESSION: 1. Multifocal brain disease, likely multiple sclerosis. Cervical Spine MRI 05/14/21 13:05 IMPRESSION: 1. Multiple nonenhancing spinal co
[2021-05-17] MEDS: HEPARIN SODIUM 5,000 UNITS/ML VIAL 5000 UNITS SUB-Q (21:16)
[2021-05-17 22:00] VITALS: BP 131/83; PULSE 108; RESP 20; TEMP 35.6; O2SAT 98
[2021-05-18 06:00] VITALS: BP 119/56; PULSE 63; RESP 18; TEMP 35.9; O2SAT 100
[2021-05-18] MEDS: HEPARIN SODIUM 5,000 UNITS/ML VIAL 5000 UNITS SUB-Q ×3 (06:12→22:50)
[2021-05-18 06:20] LABS: Basophils Percent Auto 0.1 % (0.2-1.2); Eosinophils Percent Auto 0.1 % (0-4.4); Hematocrit 44.3 % (42.0-52.0); Immature Granulocyte Absolute 0.06 K/mm3 (0.00-0.031); Immature Granulocyte Percent A 0.4 % (0-0.5); Lymphocytes Absolute Auto 1.33 K/mm3 (0.9-3.2); Lymphocytes Percent Auto 8.7 % (18.3-44.2); Mean Corpuscular HGB Conc 33.9 g/dl (32-36); Mean Corpuscular Volume 91.5 fl (80-100); Mean Platelet Volume 9.5 fl (7.4-10.4); Monocytes Absolute Auto 1.1 K/mm3 (0.1-0.6); Monocytes Percent Auto 6.9 % (2.6-8.5); Neutrophils Absolute Auto 12.8 K/mm3 (1.3-6.7); Neutrophils Percent Auto 83.8 % (45.5-73.1); Platelet Count Result 314 k/mm3 (150-375); Red Blood Count 4.84 M/mm3 (4.6-6.20); Red Cell Distribution Width 13.2 % (11.5-14.5); White Blood Count 15.3 K/mm3 (4.5-10.0)
[2021-05-18 06:31] LABS: Anion Gap 9 mmol/L (8-16); Blood Urea Nitrogen 20 mg/dL (9-20); Calcium 8.9 mg/dL (8.4-10.2); Carbon Dioxide 24 mmol/L (22-30); Chloride 106 mmol/L (98-107); Estimated CRCL calculation 244 ml/min; Estimated Glomerular Filt Rate > 60; Glucose 138 mg/dL (65-110); Potassium 4.1 mmol/L (3.4-5.0); Sodium 139 mmol/L (137-145)
[2021-05-18] MEDS: methylPREDNISolone SOD SUCC 1,000 MG in DEXTROSE 5% 100 ML 100 MG IVPB (08:25)
--- NOTE | 2021-05-18 12:52 | PM.IMPN ---
Progress Note: A&P Assessment and Plan (1) Neurological abnormality: Code(s): R29.818 - Other symptoms and signs involving the nervous system Status: Acute Assessment and Plan: MRI brain shows - Multifocal brain disease, likely multiple sclerosis. MRI of the cervical spine showed multifocal nonenhancing lesion likely multiple sclerosis. Lumbar puncture was performed with the studies pending. Glucose was 62. Total protein was 52. Total nucleated cells were with 70 with lymphocyte being 100%. Pt started on IV steroids. Pt will need 5 days of steroids in total. He will finish his course tomorrow. Neurology Service is following. She has been started on IV steroids and outpatient regimen will be recommended by Neurology at the time of discharge likely in the a.m.. Recent CT scan shows - There is slightly low density white matter region measuring about 1 cm indicated on axial image 34, a non-specific finding with differential diagnosis including migraine headaches, demyelinating disease such as multiple sclerosis or acute disseminated encephalomyelitis (ADEM), vasculopathy, lyme's disease or reactive astrocytosis (gliosis) secondary to nonspecific etiology. (2) White matter changes: Status: Acute Assessment and Plan: Likely multiple sclerosis (3) Ataxia: Code(s): R27.0 - Ataxia, unspecified Status: Acute Assessment and Plan: Mild ataxia and dizziness likely secondary to multiple sclerosis (4) Dizziness: Code(s): R42 - Dizziness and giddiness Status: Acute Assessment and Plan: Likely secondary to multiple sclerosis Additional Plan Family history of multiple sclerosis in mother's sisters. DVT prophylaxis: SCDs and subQ heparin He will likely be discharged in a.m. after he received his 5th dose of IV Solu-Medrol 1 g tomorrow and outpatient medication regimen advised by his neurologist. Subjective Date/time seen: 05/18/21 12:52 Interval history: 21 M who was admitted with dizziness and ataxia, pt has strong FH of MS. Pt had mri brain and cervical spine today showing Multifocal brain disease, likely multiple sclerosis, LP results are still pending. Patient was started on high-dose steroid for 5 days. He is feeling better. He denied have any focal neurological weakness. He denied have any visual symptoms or headache. He was able to ambulate with his mother in the hallway. He is still having mild ataxia but overall thinks that he has improved. Review of Systems Review of Systems: All systems reviewed & are unremarkable except as noted in HPI and below Exam Narrative: GENERAL: Younger man not in distress NECK: Supple. CHEST: Clear to auscultation. No respiratory distress. No wheezes rales or rhonchi HEART: Regular rate and rhythm. No murmur heard. Normal peripheral pulses. EXTREMITIES: Normal range of motion. No edema. SKIN: Warm, dry, no rash. NEURO: No speech deficits. Alert and oriented x3. PSYCH: Normal mood and affect. Objective Data Vital Signs Vital Signs: Vital Signs - 24 hr 05/17/21 14:00 05/17/21 22:00 05/18/21 06:00 Temperature 36.3 C L 35.6 C L 35.9 C L Pulse Rate 84 108 H 63 Respiratory Rate 18 20 18 Blood Pressure 150/82 H 131/83 119/56 L Pulse Oximetry 96 98 100 Intake/Output Intake/Output: Intake & Output 05/15/21 05/16/21 05/17/21 05/18/21 23:59 23:59 23:59 23:59 Intake Total 1800 2100 1370 540 Balance 1800 2100 1370 540 Meds/Results Medications: Active Medications Generic Name Dose Route Start Last Admin Trade Name Freq PRN Reason Stop Dose Admin Acetaminophen 650 mg 05/14/21 14:48 05/16/21 19:52 Acetaminophen 325 Mg Tablet PO 650 mg Q6H PRN Administration Mild Pain (1-3) or Fever Heparin Sodium (Porcine) 5,000 units 05/17/21 22:00 05/18/21 06:12 Heparin Sodium 5,000 Units/Ml Vial SUB-Q 5,000 units Q8HR NATHEN Administration Methylprednisolone Sodium 100
[2021-05-18 14:00] VITALS: BP 135/84; PULSE 104; RESP 18; TEMP 36.4; O2SAT 98
[2021-05-18 21:31] VITALS: BP 125/66; PULSE 60; RESP 18; TEMP 36; O2SAT 96
[2021-05-19 06:00] VITALS: BP 120/56; PULSE 65; RESP 18; TEMP 35.3; O2SAT 100
[2021-05-19] MEDS: HEPARIN SODIUM 5,000 UNITS/ML VIAL 5000 UNITS SUB-Q (06:21)
[2021-05-19 06:53] LABS: Anion Gap 14 mmol/L (8-16); Blood Urea Nitrogen 20 mg/dL (9-20); Calcium 9.7 mg/dL (8.4-10.2); Carbon Dioxide 20 mmol/L (22-30); Chloride 105 mmol/L (98-107); Estimated CRCL calculation 212 ml/min; Estimated Glomerular Filt Rate > 60; Glucose 125 mg/dL (65-110); Potassium 4.5 mmol/L (3.4-5.0); Sodium 139 mmol/L (137-145)
[2021-05-19 07:38] LABS: Basophils Percent Auto 0.1 % (0.2-1.2); Hematocrit 47.7 % (42.0-52.0); Hemoglobin 15.7 g/dL (14.0-18.0); Immature Granulocyte Absolute 0.11 K/mm3 (0.00-0.031); Immature Granulocyte Percent A 0.8 % (0-0.5); Lymphocytes Absolute Auto 1.51 K/mm3 (0.9-3.2); Lymphocytes Percent Auto 10.8 % (18.3-44.2); Mean Corpuscular HGB Conc 32.9 g/dl (32-36); Mean Corpuscular Hemoglobin 30.2 pg (26-34); Mean Corpuscular Volume 91.7 fl (80-100); Mean Platelet Volume 9.6 fl (7.4-10.4); Monocytes Absolute Auto 1.2 K/mm3 (0.1-0.6); Monocytes Percent Auto 8.4 % (2.6-8.5); Neutrophils Absolute Auto 11.2 K/mm3 (1.3-6.7); Neutrophils Percent Auto 79.9 % (45.5-73.1); Platelet Count Result 327 k/mm3 (150-375); Red Cell Distribution Width 12.9 % (11.5-14.5)
[2021-05-19] MEDS: methylPREDNISolone SOD SUCC 1,000 MG in DEXTROSE 5% 100 ML 100 MG IVPB (08:28)
--- NOTE | 2021-05-19 10:18 | WPDNEUROPN ---
Progress Note: A&P Additional Plan once he finishes the IV Medrol therapy for 5 days , he will be discharged on Medrol Dosepak, followed in the office for the PPD skin test, and initiation of the therapy Tecfidera or substance Time Spent With Patient Time with patient: 25 - 35 minutes Subjective Date/time seen: 05/19/21 10:18 21 years old with complaints of gait dysfunction and documented abnormal MRI of brain and spinal cord, his spinal fluid studies for the demyelinating disease are pending, patient reportedly feeling better subsequent to,spinal fluid studiesand MRI the patient has been given the Solu-Medrol therapy for 5 days, he can be discharged tomorrow after the therapy is completed he will need to be followed up in the office but he will need the PPD skin test can be done latter as outpatient, will be arranged as an outpatient and then he will be started on the treatment for demyelinating disease most likely Tecfidera or substitute. Review of Systems Review of Systems: All systems reviewed & are unremarkable except as noted in HPI and below Exam Const: General: cooperative, comfortable, no acute distress, alert and awake Nutritional Appearance: obese Orientation/consciousness: oriented to person, oriented to place and oriented to time Limitations: physical limitations HENMT: Head: normal to inspection and normocephalic Ears: hearing grossly normal bilaterally General nose exam: Normal external nose present Face and sinus: normal facial exam Mouth: Yes Normal oral and palatal mucosa present Eyes: General: appearance normal, both eyes and all related structures Visual [place]: normal visual [place] by confrontation Alignment and Position: alignment normal Periorbital: periorbital findings normal Eyelids: eyelids normal Conjunctivae: conjunctivae normal Sclera: sclerae normal Cornea: corneas normal Pupils: Equal, round and reactive pupils present EOM: EOMs intact bilaterally Neck: Neck: full ROM and no lymphadenopathy Resp: Effort & Inspection: able to speak in complete sentences Auscultation: clear to auscultation bilaterally Cardio: Rate: regular rate Rhythm: regular rhythm Skin: General skin exam: no rashes or lesions noted Neuro: General: oriented to person, oriented to place and oriented to time Cranial nerves: Yes CN's II-XII intact bilaterally Cognition (Neuro): normal cognition Speech: normal speech Gait exam (Neuro): Ataxic gait present Motor exam (neuro): Pronator motor function not present, No tremor noted, Normal motor muscle tone present throughout and Abnormal motor strength present Sensory Exam: Sensory deficit (Neuro) Deep tendon reflexes (DTR's): Right triceps reflex intensity grade: 1+, Left triceps reflex intensity grade: 1+, Rt Biceps (C5, C6): 1+, Left biceps reflex intensity grade: 1+, Right brachioradialis reflex intensity grade: 1+, Left brachioradialis reflex intensity grade: 1+, Right patellar reflex intensity grade: 1+, Left patellar reflex intensity grade: 1+, Right ankle reflex intensity grade: 1+ and Left ankle reflex intensity grade: 1+ Plantar Reflex Responses: equivocal: bilateral Coordination: [id number] test normal Psych: Appearance: grossly normal Objective Data Vital Signs Vital Signs: Vital Signs - 24 hr 05/18/21 14:00 05/18/21 21:31 05/19/21 06:00 Temperature 36.4 C 36.0 C L 35.3 C L Pulse Rate 104 H 60 65 Respiratory Rate 18 18 18 Blood Pressure 135/84 125/66 120/56 L Pulse Oximetry 98 96 100 Intake/Output Intake/Output: Intake & Output 05/16/21 05/17/21 05/18/21 05/19/21 23:59 23:59 23:59 23:59 Intake Total 2099 1370 1920 760 Balance 2099 1370 1920 760 Meds/Results Medications: Active Medications Generic Name Dose Route Start Last Admin Trade Name Freq PRN Reason Stop Dose Admin Acetaminophen 650 mg 05/14/21 14:48 05/16/21 19:52 Acetaminophen 325 Mg Tablet PO 650 mg Q6H PRN Administration Mild Pain (1-3) or Fever Heparin So
--- NOTE | 2021-05-19 11:36 | PM.DS ---
DS: Admitting Diagnosis Discharge Date 05/19/2021 Admitting Diagnosis Dizziness DS: Discharge Diagnosis Discharge Diagnosis (1) Neurological abnormality: Code(s): R29.818 - Other symptoms and signs involving the nervous system Status: Acute Assessment and Plan: Patient presented with dizziness and loss of balance Head CT showed possible nonspecific white matter abnormality, measuring about 1 cm, which may be related to migraine, demyelinating disease such as MS or acute disseminated encephalomyelitis, vasculopathy, Lyme disease, or reactive astrocytosis Follow-up brain MRI showed multifocal brain disease with greater than 10 enhancing lesions in the brain, most likely multiple sclerosis Cervical MRI showed multiple nonenhancing spinal cord lesions, again most consistent with multiple sclerosis He was seen in consultation by Neurology Lumbar puncture performed on 05/15/2021 elevated total nucleated cells at 70, 100% lymphocytes, glucose 60 to and total protein 52. No organisms on gram stain. Pathology showed no malignant cells and lymphocytes consistent with chronic inflammation. Some CSF results still pending, he will need to follow-up with neurology for review. Completed 5 days of 1000 mg IV Solu-Medrol Continue with Medrol Dosepak as an outpatient Follow-up with Neurology service in 2-3 weeks as an outpatient. He will undergo PPD skin testing prior to initiating therapy for treatment of demyelinating disease, most likely Tecfidera Educated on precautions to avoid driving until follow up per neurology recommendations (2) White matter changes: Status: Acute Assessment and Plan: Most consistent with multiple sclerosis. See above. (3) Ataxia: Code(s): R27.0 - Ataxia, unspecified Status: Acute Assessment and Plan: Mild ataxia and dizziness likely secondary to multiple sclerosis. Symptoms resolved prior to discharge (4) Dizziness: Code(s): R42 - Dizziness and giddiness Status: Acute Assessment and Plan: Likely secondary to multiple sclerosis, resolved following IV steroids. DS: Summary Hospital Course Hospital Course: Date of admission: 05/13/2021 Date of discharge: 05/19/2021 Marvin Rubio is a 21-year-old male with no significant past medical history and family history of multiple sclerosis in 2 maternal aunts who presented to the emergency department on 05/13/2021 with complaints of issues with dizziness and balance ongoing for approximately 4 months. On presentation to the emergency department, his blood pressure was elevated with additional vital signs stable, he was afebrile, head CT showed possible nonspecific white matter abnormality. He was admitted to the hospitalist service for further evaluation and management and was seen in consultation by Neurology. Please see above for further details. Imaging and exam is felt to be consistent with multiple sclerosis. He was treated with IV steroids and symptomatic improvement. He will need to follow-up with neurology as an outpatient for further management. He was feeling back to his usual state of health and felt comfortable with plans for discharge home. Informed of need for close outpatient follow-up and he verbalized understanding. Given his overall improvement, he was determined to no longer require inpatient care and was felt to be stable for discharge. Consulting specialist in agreement. I discussed worrisome signs and symptoms for which to return with the patient and he was educated on his medications. He was discharged in hemodynamically stable condition on 05/19/2021. Status at Discharge Functional status at discharge: independent ambulation Overall status at discharge: patient is back to baseline Time Spent with Patient Time attestation: Total time spent providing and/or coordinating discharge services:45 minutes Time spent: Greater than 30 minutes Exam Narrative: Mr. Silva
== END 2021-05-19 13:24 | disposition home or self-care (01) | DRG 60 ==
LOC: ANHED 21:09 → ANH3MEDSUR 21:44
PROVIDERS: Family Medicine; Internal Medicine Critical Care Medicine; Admitting Provider Internal Medicine; Emergency Provider Emergency Medicine; PCP Family Medicine; Visit Provider Physician Assistant
DX: G35 Multiple sclerosis (principal); E66.9 Obesity, unspecified; Z68.38 Body mass index [BMI] 38.0-38.9, adult; Z82.0 Family history of epilepsy and other diseases of the nervous system
CPT/HCPCS: 36415; 62328; 70450; 70553; 72156; 80048; 80069; 82040; 82042; 82550; 82784; 82945; 83873; 83916; 84157; 85025; 85610; 85730; 87015; 87070; 87116; 87205; 87206; 88108; 89051; 96365; 96366; 99285; A9270; A9577; G0378; J1644; J2930

== ENCOUNTER 2022-02-07 16:05 | Emergency (ER) | payer OTHER, SELFPAY ==
[2022-02-07 16:14] VITALS: BP 132/82; PULSE 75; RESP 18; TEMP 36.6; O2SAT 100
--- NOTE | 2022-02-07 16:53 | WPDEDEXPGENP ---
HPI - General Ped General Chief complaint: Urogenital-Male Stated complaint: Possible UTI History of Present Illness HPI narrative: Patient is a 22-year-old male who presents to the [facility] via POV for evaluation of urinary symptoms that have been present for approximately 5 days. Additionally, he reports urinary frequency, hesitancy, and low abdominal pressure. Denies taking OTC meds for symptoms. Does not identify alleviating or aggravating factors. Related Data Home Medications Medication Instructions Recorded Confirmed ofatumumab 20 mg/0.4 mL 1 ea subcut MONTHLY 02/07/22 02/07/22 subcutaneous pen injector (Kesimpta Pen) Allergies Allergy/AdvReac Type Severity Reaction Status Date / Time diroximel fumarate Allergy Severe Rash Verified 02/07/22 16:24 [From [facility]] Sulfa (Sulfonamide Allergy Mild Hives Verified 02/07/22 16:24 Antibiotics) clindamycin Allergy Unknown Verified 02/07/22 16:24 bacitracin AdvReac Mild RASH, Verified 02/07/22 16:24 ITCHING gramicidin D AdvReac Mild RASH, Verified 02/07/22 16:24 ITCHING neomycin AdvReac Mild Rash,Itchin Verified 02/07/22 16:24 g polymyxin B AdvReac Mild RASH, Verified 02/07/22 16:24 ITCHING Pediatric Review of Systems Review of Systems: Denies fever, chills, sweats, change in appetite, dysuria, hematuria, urinary urgency, back pain, abdominal pain, nausea, vomiting, diarrhea, shortness of breath, chest pain, and heart palpitations PMFSH Past Medical History Medical History No significant past medical history Surgical History Surgical History No significant past surgical history Family History Family History Mother Protein S deficiency Father CLL (chronic lymphocytic leukemia) Diabetes mellitus Hyperlipidemia Social History Social History Smoking status: Never smoker Alcohol intake: never Substance use: never Gender identity (if verbalized by the patient): Male Sexual Orientation (if Verbalized by the Patient): Straight or Heterosexual Spiritual care concerns: No Comments I have reviewed and agree with the patient's past medical, surgical, social, and family hx as documented by the RN. There is no relevant family history pertinent to the presenting complaint. Pediatric Exam Narrative: Physical exam: GENERAL: Well-appearing, well-nourished, and in no acute distress. HEAD: Normocephalic, atraumatic. NECK: Supple. No lymphadenopathy or nuchal rigidity. CHEST: Lung sounds are clear to auscultation in bilateral lung [place]. No respiratory distress. HEART: Regular rate and rhythm. No murmur, gallop, or rub heard. ABDOMEN: Soft, non-distended, normal active bowel sounds in all quadrants. Mild suprapubic tenderness appreciated palpation. No guarding. No rebound tenderness. No pulsatile or palpable abdominal mass(es). No CVATGU: Bladder non-distended, non-tender EXTREMITIES: Normal range of motion. No edema. SKIN: Warm, dry, no rash. No skin color changes. Excellent turgor. NEURO: No focal deficits. Alert and oriented x3. Course Course Level of Care: Express Care Visit Vital Signs Vital signs: Vital Signs Temperature 97.8 F 02/07/22 16:14 Pulse Rate 75 02/07/22 16:14 Respiratory Rate 18 02/07/22 16:14 Blood Pressure 132/82 02/07/22 16:14 Pulse Oximetry 100 02/07/22 16:14 Oxygen Delivery Room Air 02/07/22 16:14 Temperature 97.8 F 02/07/22 16:14 Pulse Rate 75 02/07/22 16:14 Respiratory Rate 18 02/07/22 16:14 Blood Pressure 132/82 02/07/22 16:14 Pulse Oximetry 100 02/07/22 16:14 Oxygen Delivery Room Air 02/07/22 16:14 reviewed Medical Decision Making Differential Diagnosis Differential Diagnosis: Nep
== END 2022-02-07 17:00 | disposition home or self-care (01) ==
PROVIDERS: Emergency Provider Nurse Practitioner Family; PCP Family Medicine
DX: N30.90 Cystitis, unspecified without hematuria (principal); G35 Multiple sclerosis
CPT/HCPCS: 81003; 87077; 87086; 87186; 99213; G0463

== ENCOUNTER 2022-09-05 13:18 | Emergency (ER) | payer OTHER, SELFPAY ==
--- NOTE | ~2022-09-05 | XR_ITS ---
XR humerus RT 09/05/2022 13:39 INDICATION: Left arm pain PROCEDURE: 2 views left humerus COMPARISON: No prior studies FINDINGS: Fracture, dislocation or subluxation is not identified. The soft tissues appear within norm al limits. No foreign bodies are identified. IMPRESSION: 1: NO ACUTE BONE OR JOINT ABNORMALITY IDENTIFIED. Reviewed, dictated and finalized at location A. TENDER
--- NOTE | 2022-09-05 13:20 | ED.EXTPRO ---
HPI - Extremity Problem General Chief complaint: Extremity Injury, Upper Stated complaint: Rt Elbow Pain Time Seen by Provider: 09/05/22 13:20 Source: patient Mode of arrival: ambulatory Limitations: no limitations History of Present Illness HPI Narrative: Marvin is a 22-year-old male patient presenting to the clinic today with complaints of right upper arm pain times 5 days. He reports he fell on Wednesday on some slippery snow. When he fell down 4 stairs he came down on his right arm/elbow. Reporting pain to the posterior humerus. Related Data Home Medications Medication Instructions Recorded Confirmed ofatumumab 20 mg/0.4 mL 1 ea subcut MONTHLY 02/07/22 02/07/22 subcutaneous pen injector (Kesimpta Pen) buspirone 10 mg tablet 10 mg PO TID 09/05/22 09/05/22 gabapentin 300 mg capsule 300 mg PO TID 09/05/22 09/05/22 oxybutynin chloride 5 mg tablet 5 mg PO TID 09/05/22 09/05/22 Allergies Allergy/AdvReac Type Severity Reaction Status Date / Time bacitracin AdvReac Mild RASH, Verified 09/05/22 13:29 ITCHING clindamycin AdvReac Mild Hives Verified 09/05/22 13:29 diroximel fumarate AdvReac Mild Rash Verified 09/05/22 13:29 [From [facility]] gramicidin D AdvReac Mild RASH, Verified 09/05/22 13:29 ITCHING neomycin AdvReac Mild Rash,Itchin Verified 09/05/22 13:29 g polymyxin B AdvReac Mild RASH, Verified 09/05/22 13:29 ITCHING Sulfa (Sulfonamide AdvReac Mild Hives Verified 09/05/22 13:29 Antibiotics) Review of Systems Review of Systems: Pertinent positives per HPI. Patient denies any fever, chills, rash, headache, visual changes, dizziness, cough, runny nose, sore throat, shortness of breath, chest pain, palpitations, nausea, vomiting, diarrhea, constipation, abdominal pain, or any urinary issues. PMFSH Past Medical History Medical History No significant past medical history Surgical History Surgical History No significant past surgical history Family History Family History Mother Protein S deficiency Father CLL (chronic lymphocytic leukemia) Diabetes mellitus Hyperlipidemia Sibling No problems noted. Social History Social History Smoking status: Never smoker Alcohol intake: never Substance use: never Living arrangements: with family Gender identity (if verbalized by the patient): Male Sexual Orientation (if Verbalized by the Patient): Straight or Heterosexual Spiritual care concerns: No Comments At the time of my signature, I reviewed and agree with the nursing past medical, surgical, social, and family history. There is no relevant family history pertinent to the patient complaint. Exam Narrative: General: Well-developed, well nourished, in no apparent distress Head: Normocephalic, atraumatic. Cardio: Regular rate and rhythm, s1 and s2 normal, no murmur appreciated. Resp: Clear to auscultation bilaterally, no rhonchi, rales, wheezing or rubs. Musculoskeletal: No deformity, mild bruising and swelling noted to the right posterior humerus, tender to palpation over the posterior distal humerus, grossly normal range of motion of the right elbow and shoulder, pain radiated up the posterior humerus with full extension of the elbow, muscle strength strong and equal, peripheral pulse strong, no edema, no cyanosis, normal gait and station Course Course Emergency Course: Portions of this record may have been created with voice recognition software. Level of Care: Express Care Visit Vital Signs Vital signs: Vital signs reviewed MDM - Extremity (Nontraumatic) MDM Narrative Medical decision making narrative: At the time of visit patient is resting comfortably on the exam table. X-ray of the right humeru
[2022-09-05 13:26] VITALS: BP 116/83; PULSE 78; RESP 18; TEMP 36.2; O2SAT 100
== END 2022-09-05 13:57 | disposition home or self-care (01) ==
PROVIDERS: Emergency Provider Nurse Practitioner Family; PCP Family Medicine
DX: S40.021A Contusion of right upper arm, initial encounter (principal); W00.1XXA Fall from stairs and steps due to ice and snow, initial encounter
CPT/HCPCS: 73060; 99213; G0463

== ENCOUNTER 2023-07-22 14:12 | Emergency (ER) | payer OTHER, SELFPAY ==
[2023-07-22 14:30] VITALS: BP 135/84; PULSE 89; RESP 18; TEMP 36.5; O2SAT 100
--- NOTE | 2023-07-22 14:40 | ED.GENADULT ---
HPI - General Adult General Chief complaint: Upper Respiratory Infection Stated complaint: cough,sorethroat Time Seen by Provider: 07/22/23 14:30 Source: patient, RN notes reviewed and old records reviewed Mode of arrival: ambulatory Limitations: no limitations History of Present Illness HPI narrative: 23-year-old male patient presents to [facility] with complaints cough, congestion, fever, myalgia, sore throat, and fatigue that started on Wednesday. patient states then yesterday started having shortness of breath. Patient taking [id number] medications with little relief. Patient denies dizziness, weakness, chest pain, vomiting, wheezing. MD complaint: COVID symptoms Onset (ago): day(s) (3-4) Related Data Home Medications Medication Instructions Recorded Confirmed ofatumumab 20 mg/0.4 mL 1 ea subcut MONTHLY 02/07/22 07/22/23 subcutaneous pen injector (Kesimpta Pen) buspirone 10 mg tablet 10 mg PO TID 09/05/22 07/22/23 oxybutynin chloride 5 mg tablet 5 mg PO TID 09/05/22 07/22/23 Allergies Allergy/AdvReac Type Severity Reaction Status Date / Time bacitracin AdvReac Mild RASH, Verified 09/05/22 13:29 ITCHING clindamycin AdvReac Mild Hives Verified 09/05/22 13:29 diroximel fumarate AdvReac Mild Rash Verified 09/05/22 13:29 [From [facility]] gramicidin D AdvReac Mild RASH, Verified 09/05/22 13:29 ITCHING neomycin AdvReac Mild Rash,Itchin Verified 09/05/22 13:29 g polymyxin B AdvReac Mild RASH, Verified 09/05/22 13:29 ITCHING Sulfa (Sulfonamide AdvReac Mild Hives Verified 09/05/22 13:29 Antibiotics) Review of Systems Constitutional: Constitutional: Reports no additional constitutional complaints, Reports body ache(s), Reports chills, Reports fatigue, Reports fever(s) and Reports headache(s) Eyes: Eyes: Reports no additional eye complaints and Denies blurry vision ENT: Reports system reviewed and no additional complaints, except as documented, Denies vertigo, Denies dizziness, Denies ear discharge, Denies otalgia, Denies facial pain, Reports headache(s), Reports nasal congestion, Reports nasal discharge, Denies sinus pain, Denies sinus pressure and Reports sore throat Cardiovascular: Cardiovascular: Reports no additional cardiovascular complaints, Denies chest pain, Denies chest pain at rest, Denies rapid heart rate and Denies dyspnea Respiratory: Respiratory: Reports no additional respiratory complaints, Reports chest congestion, Reports cough, Denies pain on inspiration, Denies pain with cough and Denies dyspnea Gastrointestinal: Gastrointestinal: Denies abdominal pain, Denies diarrhea, Denies nausea and Denies vomiting Integumentary/Breasts: Skin/Breast: Denies rash Neurologic: Reports system reviewed and no additional complaints, except as documented, Denies vertigo, Denies dizziness and Denies headache(s) Endocrine: Endocrine: Denies fatigue PMFSH Past Medical History Medical History No significant past medical history Surgical History Surgical History No significant past surgical history Family History Family History Mother Protein S deficiency Father CLL (chronic lymphocytic leukemia) Diabetes mellitus Hyperlipidemia Sibling No problems noted. Social History Social History Smoking status: Never smoker Alcohol intake: never Substance use: never Living arrangements: with family Gender identity (if verbalized by the patient): Male Sexual Orientation (if Verbalized by the Patient): Straight or Heterosexual Spiritual care concerns: No Comments At the time of my signature, I reviewed and agree with the nursing past medical, surgical, social, and family history. There is no relevant family history pertinent to the donna
== END 2023-07-22 15:02 | disposition home or self-care (01) ==
PROVIDERS: Emergency Provider Registered Nurse; PCP Family Medicine
DX: J10.1 Influenza due to other identified influenza virus with other respiratory manifestations (principal); Z20.822 Contact with and (suspected) exposure to COVID-19; Z79.899 Other long term (current) drug therapy
CPT/HCPCS: 87081; 87426; 87804; 87880; 99213; C9803; G0463

== ENCOUNTER 2024-07-18 10:47 | Emergency (ER) | payer OTHER, SELFPAY ==
[2024-07-18 11:33] VITALS: BP 126/80; PULSE 68; RESP 18; TEMP 36.1; O2SAT 100
--- NOTE | 2024-07-18 11:38 | ED_ITS ---
HPI - URI/Sore Throat General Chief Complaint: Upper Respiratory Infection Stated Complaint: Congestion/ fever/ sore throat Time Seen by Provider: 07/18/24 11:46 Source: patient and RN notes reviewed Mode of arrival: ambulatory Limitations: no limitations History of Present Illness HPI Narrative: 24-year-old male presents with concern for fever, sore throat, nasal congestion. Reports symptoms started 3 days ago, had a low-grade fever last night and this morning. MD elicited complaint: cough and sore throat Related Data Home Medications ?Medication ?Instructions ?Recorded ?Confirmed ?Last Taken ?Type ofatumumab 20 mg/0.4 mL 1 ea subcut MONTHLY 02/07/22 07/18/24 Unknown History subcutaneous pen injector (Kesimpta Pen) buspirone 10 mg tablet 10 mg PO TID 09/05/22 07/18/24 Unknown History oxybutynin chloride 5 mg tablet 5 mg PO TID 09/05/22 07/18/24 Unknown History Allergies Allergy/AdvReac Type Severity Reaction Status Date / Time bacitracin AdvReac Mild RASH, Verified 07/18/24 11:25 ITCHING clindamycin AdvReac Mild Hives Verified 07/18/24 11:25 diroximel fumarate (From AdvReac Mild Rash Verified 07/18/24 11:25 Vumerity) gramicidin D AdvReac Mild RASH, Verified 07/18/24 11:25 ITCHING neomycin AdvReac Mild Rash,Itchin Verified 07/18/24 11:25 g polymyxin B AdvReac Mild RASH, Verified 07/18/24 11:25 ITCHING Sulfa (Sulfonamide AdvReac Mild Hives Verified 07/18/24 11:25 Antibiotics) Review of Systems Review of Systems: CONSTITUTIONAL: Denies malaise, chills, sweats. Reports low-grade fever. EYES: Denies visual changes, redness, or discharge. ENT: Reports rhinorrhea, congestion, and sore throat. CARDIOVASCULAR: Denies chest pain, palpitations, or edema. RESPIRATORY: Reports cough. Denies dyspnea. GASTROINTESTINAL: Denies abdominal pain, nausea, vomiting, diarrhea SKIN: Denies rash or itching. MUSCULOSKELETAL: Denies myalgia. NEUROLOGIC: Denies headache. All systems reviewed & are unremarkable except as noted in HPI and below PMFSH Past Medical History Medical History No significant past medical history Surgical History Surgical History No significant past surgical history Family History Family History Mother Protein S deficiency Father CLL (chronic lymphocytic leukemia) Diabetes mellitus Hyperlipidemia Sibling No problems noted. Social History Social History Smoking status: Never smoker Alcohol intake: never Substance use: never Living arrangements: with family Gender identity (if verbalized by the patient): Male Sexual Orientation (if Verbalized by the Patient): Straight or Heterosexual Spiritual care concerns: No Comments At time of signature, agree with nursing past medical, surgical, social and family history. There is no relevant family history pertinent to the presenting complaint Exam Narrative: GENERAL: Well-appearing, well-nourished, and in no acute distress. HEAD: Normocephalic EYES: PERRLA, conjunctivae clear ENT: Nares clear. Mucous membranes moist. TM pearly gaona with sharp light reflex bilaterally; no tragal tenderness. Oropharynx not erythematous without lesions. Tonsils not enlarged and without exudate, no drooling, no hoarseness, no trismus, uvula midline. NECK: Supple. No lymphadenopathy CHEST: Clear to auscultation, breath sounds equal. No wheezing, rhonchi, rales, or stridor. No respiratory distress, speaks in full sentences. HEART: Regular rate and rhythm. No murmur heard. SKIN: Warm, dry, no rash. NEURO: Alert and oriented x3. PSYCH: Normal mood and affect Course Course Emergency Course: Patient is aware of diagnosis, understands and agrees to treatment plan. Anticipatory guidance given. Patient agrees to follow-up as directed and is aware of reasons to seek care at the emergency department. Portions of this record may have been created with voice recognition software Level of Care: Express Care Visit Vital Signs Vital signs: Vital Signs Temperature 96.9 F L 07/18/24 11:33 Pulse Rate 68 07/18/24 11:33 Respiratory Rate 18 07/18/24 11:33 Blood Pressure 126/80 07/18/24 11:33 Pulse Oximetry 100 07/18/24 11:33 Oxygen Delivery Room Air 07/18/24 11:33 Temperature 96.9 F L 07/18/24 11:33 Pulse Rate 68 07/18/24 11:33 Respiratory Rate 18 07/18/24 11:33 Blood Pressure 126/80 07/18/24 11:33 Pulse Oximetry 100 07/18/24 11:33 Oxygen Delivery Room Air 07/18/24 11:33 Reviewed. MDM - URI/Sore Throat MDM Narrative Medical decision making narrative: Differential diagnosis considered: Bah virus, strep pharyngitis, allergic rhinitis, upper respiratory tract infection, sinusitis, rhinosinusitis, nasopharyngitis. viral pharyngitis, otitis media, otitis externa, pneumonia, bronchitis, viral cough syndrome, viral syndrome, and influenza. Exam findings show no acute concerns or changes; patient is non-toxic appearing and is in no distress. Patient is appropriate for outpatient treatment and follow-up. Lab Data Attestation: I reviewed the patient's lab results. Critical Care Time Critical Care Time Critical Care Time: No Discharge Plan Discharge Clinical Impression: Upper respiratory infection Patient Disposition: Home, Self-Care Condition: Stable Instructions: Upper Respiratory Infection (ED) Additional Instructions: Your rapid COVID and flu tests are negative Your rapid strep swab was negative today at [facility]. A throat culture will be sent to the laboratory for further testing. If the test is positive, you will receive a phone call within 48 hours and an appropriate antibiotic will be initiated at that time. Your symptoms are likely due to a viral illness, which is not treated with antibiotics. Viral symptoms can be present for up to a few weeks. -Alternate Tylenol and Motrin per package directions for fever or pain. -Antihistamine medication such as Benadryl at night and Zyrtec during the day can help improve symptoms. -Eat and drink things that are easy to swallow, like tea or soup, or popsicles to suck on. -Oral rinses such as: Salt water gargles and/or may use topical anesthetic (eg. Chloraseptic spray) or lozenges to relieve dryness or throat pain). -Frequent hand washing or hand business applications developer is one of the best ways to prevent spread of infection. -Follow up with primary care provider in 2-3 days if condition is not improving; or seek ER visit if you have trouble breathing, cannot drink enough fluids, have muffled voice, difficulty opening your mouth, or severe swelling. Patient Language: Greek Prescriptions: New dextromethorphan-guaifenesin [Mucinex DM] 60-1,200 mg tablet extended release 12 hr 1 tablet PO Q12H Qty: 12 0RF pseudoephedrine HCl [12 Hour Decongestant] 120 mg tablet extended release 120 mg PO Q12H PRN (Reason: nasal congestion) Qty: 20 0RF No Action Kesimpta Pen 20 mg/0.4 mL pen injector 1 ea SUBCUT MONTHLY buspirone 10 mg tablet 10 mg PO TID oxybutynin chloride 5 mg tablet 5 mg PO TID Follow-up/Referrals: Jonathon Ferrell MD [Primary Care Provider] - Stand Alone Forms: Work/School Release IP Time of Disposition: 11:52
== END 2024-07-18 11:57 | disposition home or self-care (01) ==
PROVIDERS: Emergency Provider Nurse Practitioner; PCP Family Medicine
DX: J06.9 Acute upper respiratory infection, unspecified (principal)
CPT/HCPCS: 87081; 99213; G0463

== ENCOUNTER 2024-11-14 17:28 | Outpatient (CLI) | payer OTHER, SELFPAY ==
--- OUTSIDE RECORDS SUMMARY | 2024-11-14 17:34 | XMS_ITS | Clinical Summary ---
Author Organization [facility] Address [facility] [place] [address] Care Team Providers Care Title Department Manager Name Role Phone Jonathon Ferrell MD Primary Care Provider [phone] Allergies Active Allergy Reactions Criticality Noted Date Comments Clindamycin Rash Medium 05/07/2014 Sulfa (Sulfonamide Antibiotics) Unknown 11/11/2010 Turns red Sulfadiazine Rash,Redness Medium 08/26/2021 Uzrqrolp-Fdpguzqypc-Ccjkmty in Rash Medium 08/26/2021 Diroximel Fumarate Hives,Rash,Fever,Red livia s Medium 08/26/2021 Medications famotidine (PEPCID) 20 mg tablet Take 1 tablet (20 mg total) by mouth daily Active oxyBUTYnin (DITROPAN) 5 mg tablet TAKE 1 TABLET BY MOUTH THREE TIMES A DAY 90 tablet 5 07/25/20 24 Active busPIRone (BUSPAR) 10 mg tablet TAKE 1 TABLET BY MOUTH THREE TIMES A DAY 90 tablet 5 07/25/20 24 Active ofatumumab (Kesimpta Pen) 20 mg/0.4 mL pen injectorIndica tions:Multiple sclerosis (HCC) Inject 20 mg under the skin every 30 (thirty) days 0.4 mL 11/12/19 25 Active Kesimpta Pen 20 mg/0.4 mL pen injector INJECT 20MG SUBCUTANEOUSLY ONCE MONTHLY 0.4 mL 5 04/24/20 24 025 Discontin ued(Reord er) Active Problems Problem Noted Date Diagnosed Date Immunosuppression due to drug therapy 01/17/2023 High risk medication use 01/17/2023 Abnormal MRI 01/17/2023 Vitamin D deficiency 01/17/2023 Medication monitoring encounter 01/17/2023 Mixed anxiety and depressive disorder 01/17/2023 Dysesthesia of multiple sites 01/17/2023 Neurogenic bladder disorder 01/17/2023 History of COVID-19 01/17/2023 Multiple sclerosis 08/26/2021 Encounters Date Type Department Care Team Description 10/31/2024 10:00 AM CDT Office Visit [facility] S[facility] [address] [id number] Sudarshan Dinero MD PhD Multiple sclerosis (HCC) (Primary Dx) 10/25/2024 Orders Only [facility] Multiple Sclerosis [address] [phone] Sudarshan Dinero MD PhD Multiple sclerosis (HCC) (Primary Dx) from Last 3 Months Immunizations Immunization Administration Dates Next Due COVID-19 mRNA (Real Food Blends) 0.3 m L (30 mcg) vaccine (12 years and up) 05/22/2023 DTaP 04/28/2005, 2,2000,06/08,2000 HPV, Quadrivalent 05/07/2014 HPV9 04/27/2017 Hep A, Pediatric 05/07/2014,05/11/2011 Hep B, Adolescent or Pediatric 2000,1999,2000 HiB 08/26/2001, 0,2000,04/06 Hib (PRP-D) 08/26/2001, 0,2000,04/06 IPV 04/28/2005, 1,2000,04/06 Influenza, Quadrivalent, Spl it, Preservative Free, Intramuscular 04/27/2017 Influenza, Trivalent, Cell Culture-based MDCK, Preservative Free, Antibiotic Free, Intramuscular 05/22/2023 Influenza, Trivalent, IM (MDV) 05/11/2011 MMR 04/28/2005,02/21/2001 Meningococcal MCV4P (Menactra) 04/27/2017,2013 PPD TEST, UNSPECIFIED 04/28/2005,02/21/2001 Pneumococcal Conjugate 7-Valent 02/22/20,2000,2000,04/06 Pneumococcal Conjugate, Unspecified 02/06,2000,2000,04/06 Tdap 10/11/2021,05/11/2011 Varicella 05/07/2014,04/28/2005 Family History Medical History Relation Name Comments Hypertension Father Leukemia Father Protein S deficiency Mother Relation Name Status Comments Father Mother Social History Tobacco Use Types Packs/Day Years Used Date Smoking Tobacco: Never Tobacco Cessation:Counseling Given: Not Answered Sex and Gender Information Value Date Recorded Sex Assigned at Not on file Legal Sex 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 Gender Identity Not on file Sexual Orientation Not on file Obstetrics History Last Filed Vital Signs Vital Sign Reading Time Taken Comments Blood Pressure 153/100 10/31/2024 9:00 AM CDT Pulse 51 10/31/2024 9:00 AM CDT Temperature 36.2 C (97.1 F) 01/20/2023 8:37 AM CDT Respiratory Rate - - Oxygen Saturation - - Inhaled Oxygen Concentration - - Weight 115.8 kg (255 lb 3.2 oz) 10/31/2024 9:00 AM CDT Height 185.4 cm (6' 1 ) 10/31/2024 9:00 AM CDT Body Mass Index 33.67 10/31/2024 9:00 AM CDT Plan of Treatment Health Maintenance Due Date Last Done Comments Depression Screening 2000 Pneumococcal vaccine <65 (1 of 2 - PPSV23) 04/18/2001 02/21/2001, 02/21/2001, 2000, Additional history exists Regular Well Visit/Exam 18-64 02/03/2018 Zoster Vaccine (1 of 2) 02/03/2019 Covid-19 Vaccine (5 - 2023-2 5 season) 2024 05/22/2023, 09/04/2021, 12/03/2020, Additional history exists DTaP/Tdap/Td Vaccine (8 - Td or Tdap) 10/12/2031 10/11/2021, 05/11/2011, 04/28/2005, Additional history exists Hepatitis B Screening Completed 2000 , 2000, 2000 Varicella Vaccines Completed 05/07/2014, 04/28/2005 HPV Vaccines Completed 04/27/2017, 05/07/2014 Hepatitis C Screening Completed 08/26/2021 Influenza Vaccine Completed 05/23/2024, , 04/27/2017, Additional history exists Procedures Procedure Name Priority Date/Time Associated Diagnosis Comments HEPATITIS C ANTIBODY Routine 08/26/2021 3:19 PM [employer]AR[employer] CONTACT PRINTER Multiple sclerosis (HCC) from Last 3 Months or Most Recently Relevant to Health Maintenance Results * Hepatitis C antibody (08/26/2021 3:19 PM PR[employer]AR[employer] CONTACT PRINTER) Hep C Ab Nonreactive Nonreactive SHARMILA BAPTISTE Comment:Antibodies to HCV no t detected. Does NOT exclude the possibility of recent exposure to HCV. Blood 08/26/2021 3:19 PM PRINT[employer] BOAR[employer] CONTACT PRINTER 08/26/2021 3:34 PM [employer]AR[employer] CONTACT PRINTER us Sudarshan Dinero MD PhD LAB MICROBIOLOGY - GEN ERAL ORDERABLES Edited Result - Final [facility] Department [place] [address] from Last 3 Months or Most Recently Relevant to Health Maintenance Insurance [facility] Care Teams Title Department Manager Relationship Specialty Start Date End Date Jonathon Ferrell MD PCP - General Family Medicine 01/20/23
--- OUTSIDE RECORDS SUMMARY | 2024-11-14 17:34 | XMS_ITS | Clinical Summary ---
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 Gender Identity Not on file Sexual Orientation Not on file Plan of Treatment Health Maintenance Due Date Last Done Comments Annual Physical 02/03/2003 HPV Vaccines (1 - Male 3-dos e series) 02/03/2015 Hepatitis C 02/03/2018 DTaP, Tdap and Td Vaccines ( 1 - Tdap) 02/03/2019 Hepatitis B Vaccines (1 of 3 - 19+ 3-dose series) 02/03/2019 COVID-19 Vaccine ( - 2023-2 5 season) 2024 Meningococcal B Vaccine Aged Out No l onger eligible based on patient's age to complete this topic Meningococcal Vaccine Aged Out No eris linden eligible based on patient's age to complete this topic Pneumococcal Vaccine: Pediat rics (0 to 5 Years) and At-Risk Patients (6 to 64 Years) Aged Out No longer eligible b ased on patient's age to complete this topic RSV Immunizations Under 20 Months Aged Out No longer eligible based on patient's age to complete this topic
--- OUTSIDE RECORDS SUMMARY | 2024-11-14 17:34 | XMS_ITS | Encounter Summary ---
Author Organization [facility] Address [address] [place] [address] Phone Care Team Providers Care Calibration Tester Name Role Phone Jonathon Ferrell MD Primary Care Provider Reason for Referral * MRI/CAT/PET Scan (Routine) - Authorized Specialty Diagnoses / Procedures Referred By Connie francis Referred To Contact Radiology Diagnoses Multiple sclerosis (HCC) Procedures MRI MS Brain 3T Protocol WO Sudarshan Dinero MD PhD 1 [facility] [address] [place] [address] Phone: tel: fax: [address] [phone] Referral ID Status Reason Start Date Expiration Date V isits Requested Visits Authorized [id number] Authorized 10/31/2024 11/30/2025 1 1 Encounter Details Date Type Department Care Team (Late st Contact Info) Description 10/31/2024 10:00 AM CDT Office Visit [facility] Multiple Sclerosis [address] [facility] [address] [place] [address] Sudarshan Dinero MD PhD 1 [facility] [place] [address] Multiple sclerosis (HCC) (Primary Dx) Social History Tobacco Use Types Packs/Day Years Used Date Smoking Tobacco: Never Tobacco Cessation:Counseling Given: Not Answered Sex and Gender Information Value Date Recorded Sex Assigned at Not on file 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 Gender Identity Not on file Sexual Orientation Not on file documented as of this encounter Last Filed Vital Signs Vital Sign Reading Time Taken Comments Blood Pressure 153/100 10/31/2024 9:00 AM CDT Pulse 51 10/31/2024 9:00 AM CDT Temperature - - Respiratory Rate - - Oxygen Saturation - - Inhaled Oxygen Concentration - - Weight 115.8 kg (255 lb 3.2 oz) 10/31/2024 9:00 AM CDT Height 185.4 cm (6' 1 ) 10/31/2024 9:00 AM CDT Body Mass Index 33.67 10/31/2024 9:00 AM CDT documented in this encounter Patient Instructions * Patient Instructions* Sudarshan Dinero MD PhD - 10/31/2024 10:00 AM CDT It was my pleasure to see you in the [facility] today. Today I evaluated you for MS. Please see the specific instructions listed below as well as any handouts that may be important for you to review. Diagnosis: Relapsing remitting MS Plan: 1) We should have you see either me or Leigh Hagen in about 6 month(s) 2) Testing ordered today includes: blood work today; MRI soon I want to provide you with the best care possible. In order to do that, I need some help from you: 1) Gimahhott is the best way to contact me or our clinic team. Phone calls work, but often require being on hold, survey researcher of your message, etc. [employer] Messages to directly to the person who can act on the question. Please allow 2-3 working days for a reply, although we aim to be much faster. For emergencies, call 911 or go to the nearest Emergency Room. 2) Please make sure you have a primary care doctor who you see regularly. 3) Some medications prescribed for MS and related conditions have been associated with increased risk of some cancers. Notable examples are Ocrevus and breast cancer and S1P modulating drugs and skincancer. If this applies to you, we will discuss it during your appointment. Regardless, it is important you see your primary care doctor and stay up to date with your colonoscopy, mammography (if applicable), skin checks, and pap smears (if applicable). 4) If you develop new neurological symptoms such as weakness, numbness, changes in vision, or trouble going to the bathroom please let us know right away. If these symptoms come on suddenly, you should go to the emergency room. When in doubt, it is better to be evaluated emergently. 5) If you have a new, significant medical illness or new medications, please let me know via Gimahhott. Some medical problems (including but not limited to those affecting your heart, liver, lungs, kidneys, or eyes) impact how we treat your neurological condition so it is important for us to know about them. 6) We recommend that patients remain up to date on seasonal vaccines including the flu shot and COVID 19. Live attenuated virus vaccines should be avoided unless you specifically ask your doctors. Below are some important policies and procedures regarding your care: New Panono Message Policy [facility], as well as many other hospital and clinical systems, increasingly rely on Panono messages for communication. Some of these messaged require significant time from your doctor or other provider(for example, nurse practitioners) as well as medical decision making. As of Dec 30 2022, we will now bill your insurance for [employer] messaged which take longer than 5 minutes to reply to and requiremedical decision making. You may have a co-pay for these messages. Messages like prescription refill requests, messages sent to update a provider, or brief questions will remain free. Examples of messages that may incur a bill is a new symptom that requires lab or imaging testing and a new prescription. MS Performance Testing The iPad MS Performance Testing (MSPT) is recommended for those with multiple sclerosis, and is currently available Tuesdays. If your visit is scheduled for 9 am or later, MSPT completion could occur before. If your visit is earlier than 9 am, MSPT will typically occur after. MSPT results are available for review on [employer]. MSPT will be billed to your insurance as part of your MS care. Labs at Outside Facilities We strongly recommend that you obtain labs at a facility that automatically uploads the results into you chart. When labs are sent electronically, we can view them in a table over time, and share them immediately with you. These facilities that automatically upload labs include [facility] facilities, [facility], and [facility]. If your primary doctor orders labs, you might ask if they can be done at one of the above options. Updates on MRI Scans at Outside Facilities You have a choice as to where to obtain your MRI. We strongly recommend that you obtain them at a [employer] facility. This includes [facility], [facility], and [facility]. At these locations, your report and images are automatically and immediately uploaded to your chart. Our neuroradiologist will determine disease activity by comparing current to prior images. For questions, we can quickly communicate with your neuroradiologist at any of these three locations through EPIC or email. You will have access to a detailed MS imaging report through [employer]. You may opt to obtain MRIs at an outside facility. The outside radiologist may not be able to compare to prior images, and there may be a delay with receiving the report or obtaining the disks of theactual images. If you prefer to obtain your MRI at an outside facility, we need your help obtainingthe report and the images. Please ask for a copy of the images on a disk before you leave, and either mail them to us or drop them off at the front clinic desk. We strongly recommend we consult our neuroradiologist to review the current and prior images, and construct a second report to assist us in your care. These second reports by our [employer] neuroradiologists are typically but not always covered by your insurance, and you may be responsible for any remaining deductible or co-insurance. If you wish to opt-out of this neuroradiologist consult for a second report of your images, let us know, and we will rely on the report of the original facility. documented in this encounter Progress Notes * Sudarshan Dinero MD PhD - 10/31/2024 10:00 AM CDT [facility] - Return Office Visit [address] [place] [address] Patient Name: NICHOLAS RUBIO Medical Record Number (MRN): [id number] Date of (): 2000 Encounter Date: 10/31/2024 Nicholas Rubio is a 24 y.o. male with multiple sclerosis. INTERVAL HISTORY OF PRESENT ILLNESS: Since his last clinic visit, he denies any new focal neurological symptoms suggestive of an interval relapse, including changes in vision (reduced vision, loss of vision, double vision, and/or pain with eye movements), facial droop/slurred speech, focal weakness/numbness/tingling, problems with colby nce/coordination/vertigo, problems with walking, or urinary/bowel symptoms. He remains primarily symptomatic with left sided weakness, dizziness, and headaches. He also has some symptoms of urinary urgency and retention. Migraine: Frequency fluctuates, currently about 1/week. Takes OTC analgesics (tylenol, aspirin). He denies any clear functional decline to suggest disease progression. He estimates he can walk about as far as he could a year ago without stopping, and he is able to do the same activities he was doing at this time last year. He remains on Kesimpta . He missed about 1 week in August, due to insurance issues and the company, but now he is back on track . He denies any side effects. Review of MS symptoms Ambulation: no issues. UE Function: LUE weakness, stable. Some shakiness in hands. Denies incoordination. LE Function: LLE weakness, stable. Sensation/Pain: No numbness / paresthesias / pain. Spasms: Rare left-sided muscle spasms, not bothersome. Cognition: Sometimes forgetful, been stable. No difficulties with processing speed / word finding. Fatigue: Stable amount of generalized fatigue. Vision: No vision changes. Brainstem: Rare dizzy spells. None since August. No vertigo / diplopia, facial numbness. Bladder: Some urinary urgency, incontinence, and retention. No UTIs. Mood: Still struggles with being anxious, but stable. Some lack of motivatrion, a little bit of depression. MS History: Multiple Sclerosis Smartform Current primary neurologist: Sudarshan Dinero Neurologist-confirmed diagnosis: Multiple Sclerosis MS subtype: RRMS Year of onset: 2020 Month of onset: Jan Year of diagnosis: 2021 Relapse History Clinician-defined relapses in chronoclogical order. Relapses are new/recurrent symptoms lasting at least 24 hours in the absence of infection/fever. Multiple Sclerosis - Disease-Modifying Therapies Meciation (DMT) Other DMT Start year Start month Top start reason Top start comment Stop year Stop month Top stop reason Top stop comment Adherence Diroximel Fumarate (Vumerity) 2021 Provider recommendation based on MS severity/medication [id number] Intolerance/side effects (SYMPTOMS) Ofatumumab (Denizerra, Kesimpta) 2021 Provider recommendation based on MS severity/medication efficacy MRI Changes Year Month Type New lesion neuro New lesion rad BEATA neuro BEATA rad MRI comment 2020 Brain first MRI 2020 C Spine first MRI 2021 Brain 2 0 comp. MRI 05/2021 Brady Brain 0 0 comp. MRI 01/2022b Brain 0 0 comp. MRI 01/2023b C Spine 0 0 comp. MRI 05/2021b T Spine 0 first MRI CSF Studies Severity Rating Year Month EDSS Vision Brainstem FS Pyramidal FS Cerebellar FS Sensory FS Bladder FS Cerebral FS Ambulatory FS SEDSS PDAS Note for severity rating 2022 2.0 1 1 1 1 2 1 1 1 2022 2.0 1 1 1 1 2 1 1 1 2023 2.5 0 0 2 0 2 1 1 2024 2.5 0 0 2 0 2 1 1 Ophthalmology 10/31/2024 8:53 PM INTERVAL MEDICAL/SURGICAL HISTORY: -no interval medical events. Does not see any other doctors MEDICATIONS: As cited and reviewed in the [facility] medical record. ALLERGIES.: As cited and reviewed in the [facility] medical record. SOCIAL HISTORY: No change in social history that is relevant to their medical care FAMILY HISTORY: As cited and reviewed in the [facility] medical record. REVIEW OF SYSTEMS: A complete review of symptoms was performed including constitutional symptoms, cardiovascular, respiratory, gastrointestinal, genitourinary, musculoskeletal, neurological, psychiatric, endocrine, immunologic, integumentary, hematological, eyes, ears, nose, mouth and throat. All symptoms negative except as per HPI. PHYSICAL EXAMINATION: VITAL SIGNS: BP 153/100 (BP Location: Right arm, Patient Position: Sitting) Pulse 51 Ht 185.4 cm (6' 1 ) Wt 115.8 kg (255 lb 3.2 oz) BMI 33.67 kg/m?? CARDIOVASCULAR: No edema, no distress. RESPIRATORY: Non-labored. EXTREMITIES: No rash. Normal bulk. NEUROLOGIC EXAMINATION: Cerebral Function: Comments: Fatigue, limitting, Alert, oriented Visual Function: Visual acuity OD: 20/20 or better Visual acuity OS: 20/20 or better Visual field scotoma OD: 0 Visual field scotoma OS: 0 Disc pallor OD: not examined Disc pallor OS: not examined Brainstem Function: Comments: EOMI, no nystagmus, F= Pyramidal Function: Overall motor performance: reduction in strength of individual muscle groups on confrontational testing Limb Strength: Right Left Arm abduction 5 5 Elbow flexion 5 4+ Elbow extension 5 4+ Wrist extension 5 5 Finger extension 5 5 Finger abduction 5 5 Finger flexion 5 5 Hip flexion 5 4+ Knee extension 5 4+ Knee flexion 5 4+ Ankle dorsiflexion 5 5 Ankle plantar flexion 5 5 Reflexes: Right Left Biceps 2+ 2+ Brachioradialis 2+ 2+ Triceps 2+ 2+ Patellar 3+ 2+ Ankle jerk 2+ 2+ Plantar Flexor Flexor Sensory Function: Light touch and pain Vibration Sense Position Sense Right upper extremity normal normal, 8/8 normal Left upper extremity normal normal, 8/8 normal Right lower extremity normal moderate loss, 1-4/8 normal Left lower extremity normal moderate loss, 1 -4/8 normal Cerebellar Function: Ataxia Right upper extremity normal Left upper extremity normal Right lower extremity normal Left lower extremity normal Truncal or gait ataxia exam:normal Tandem walking: normal Romberg test: normal Ambulation: Unrestricted Kurtzke's Functional Systems Scores Visual Function Score: 0 Brainstem Function Score: 0 Pyramidal Function Score: 2 Sensory Function Score: 2 Cerebellar Function Score: 0 Bowel and Bladder Function Score: 1 Cerebral Function Score: 1 EDSS: 2.5 DIAGNOSTIC DATA: INTERVAL SERUM LABS: -02/15/24 CMP, CBC wnl. IgG 620, IgM 25 (both stable from 07/2023). CD19 1, other cell counts wnl. INTERVAL CSF LABS: -none INTERVAL MRI STUDIES: -No interval MRI studies MSPT RESULTS: MS Perfomance Test Flowsheet Row Office Visit from 02/15/2024 in [facility] Multiple Sclerosis with Sudarshan Dinero MD PhD Office Visit from 07/21/2022 in [facility] Multiple Sclerosis with Sudarshan Dinero MD PhD MSPT 25FTW (Avg Time in Seconds) 6.47 seconds 6.95 seconds 25FTW Z-Score -0.89 -1.31 SDMT 60 50 SDMT Z-Score 0.35 -0.76 Handedness right right 9HPT Left Avg (in seconds) 30 seconds 29 seconds 9HPT Right Avg (in seconds) 24 seconds 29 seconds 9HPT Dominant Z-Score -0.06 -1.26 9HPT Non-Dom Z-Score -1.08 -0.87 2.5% Vision -- -- 100% Vision -- -- Visual Memory Raw 54 -- Visual Memory Z-Score -0.46 -- PDDS gait_disability gait_disability Relapses since last visit 2 3_plus PHYSICAL Mobility QOL 45 43 Fine Motor and ADL QOL 34 49 Fatigue QOL 61 50 Sleep QOL 55 56 MENTAL Mental QOL 37 41 Depression QOL 51 44 Anxiety QOL 56 54 Emotional Dyscontrol QOL -- -- Stigma QOL 60 54 Positive Affect/Well-being QOL -- -- SOCIAL Social Participation QOL 41 37 Social Satisfaction QOL 40 40 Employment Status full_time part_time STUDIES SUPPORTING THE DIAGNOSIS OF MULTIPLE SCLEROSIS: IMPRESSION AND PLAN: Nicholas Rubio is a 24 y.o. male with MS on Kesimpta doing well. His symptoms (predominantely left sided weakness, some shakiness in the hands, urinary urgency/retention, and fatigue) are all stable. He is due for BCDT screening labs and MRI (brain and spine). DMT Plan: continue kesimpta Lab plan: BCDT labs today Imaging Plan: MRI brain and spine (attempting to enroll in a research Spine MRI protocol) ORDERS PLACED THIS VISIT: Orders Placed This Encounter Procedures MRI MS Brain 3T Protocol WO Comprehensive metabolic panel CBC with auto differential Immune competence IgM IgG I spent a total of 30 minutes on the day of the visit on activities related to the visit such as preparing to see the patient, seeing the patient, counseling and educating the patient/family/caregiver, ordering medications, tests, or procedures, referring and communicating with other healthcare professionals, documenting clinical information in the electronic or other health record, independentlyinterpreting results and communicating the results to the patient/family/caregiver, and/or on care coordination. Greater than 50% of any time I spent with the patient was spent in counseling and/or coordination of care. Sudarshan Dinero M.D., Ph.D. Dental Mechanic of Neurology Multiple Sclerosis / Neuroimmunology Section 5:20 PM 10/31/24 documented in this encounter Miscellaneous Notes * Addendum Note - Yony Peñaloza RN - 10/31/2024 10:00 AM CDT Addended by: YONY PEÑALOZA on: 11/13/2024 09:37 AM Modules accepted: Orders documented in this encounter Plan of Treatment Scheduled Orders Name Type Priority Associated Diagnoses Order Schedule MRI MS Brain 3T Protocol WO Imaging Schedule Routine, Read Routine (OP Routine) Multiple sclerosis (HCC) Expected: 10/31/2024, Expires: 10/31/2025 Comprehensive metabolic panel Lab Routine Multiple sclerosis (HCC) Expected: 10/31/2024, Expires: 10/31/2025 CBC with auto differential Lab Routine Multiple sclerosis (HCC) Expected: 10/31/2024, Expires: 10/31/2025 Immune competence Lab Routine Multiple sclerosis (HCC) Expected: 10/31/2024, Expires: 10/31/2025 IgM Lab Routine Multiple sclerosis (HCC) Expected: 10/31/2024, Expires: 10/31/2025 IgG Lab Routine Multiple sclerosis (HCC) Expected: 10/31/2024, Expires: 10/31/2025 documented as of this encounter Visit Diagnoses Diagnosis Multiple sclerosis (HCC)- Primary Multiple sclerosis documented in this encounter Care Teams Calibration Tester Relationship Specialty Start Date End Date Jonathon Ferrell MD PCP - General Family Medicine 01/20/23 documented as of this encounter
--- OUTSIDE RECORDS SUMMARY | 2024-11-14 17:34 | XMS_ITS | Clinical Summary ---
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 Gender Identity Not on file Sexual Orientation Not on file Plan of Treatment Health Maintenance Due Date Last Done Comments Hepatitis C Virus (HCV) Screening 2000 TdaP Immunization 2000 Influenza Immunization (#1) 2024 04/27/2017 SARS-COV-2 Immunization ( season) 2024 Respiratory Syncytial Virus (RSV) Immunization (Adult) (1 - 1-dose 75+ series) 02/03/2075 Hepatitis B Immunization Completed 001, 2000, 2000 Pneumococcal Immunization Combined Aged Out 02/21/2001, 2000, 2000, Additional history exists No longer eligible based on patient's age to complete this topic DTaP/Tdap/Td Immunization Discontinued 2001, 2000, 2000, Additional history exists Human Papillomavirus (HPV) Immunization Completed 04/27/2017, 05/07/2014 Meningococcal Immunization (ACWY) Completed 04/27/2017, 05/07/2014 Rotavirus Immunization Aged Out No lo nger eligible based on patient's age to complete this topic
--- OUTSIDE RECORDS SUMMARY | 2024-11-14 17:34 | XMS_ITS | Referral Summary ---
Author Organization [facility] Address [address] [place] [address] Care Team Providers Care Field Enumerator Name Role Phone Jonathon Ferrell MD Primary Care Provider [phone] Encounters Date Type Department Care Team Description 10/31/2024 10:00 AM CDT Office Visit [facility] Multiple S[facility] [address] [phone] Sudarshan Dinero MD PhD Multiple sclerosis ([facility]) (Primary Dx) 10/25/2024 Orders Only [facility] [address] [phone] Sudarshan Dinero MD PhD Multiple sclerosis ([facility]) (Primary Dx) from Last 3 Months Allergies Active Allergy Reactions Criticality Noted Date Comments Clindamycin Rash Medium 05/07/2014 Sulfa (Sulfonamide Antibiotics) Unknown 11/11/2010 Turns red Sulfadiazine Rash,Redness Medium 08/26/2021 Ctehsdmc-Idfoierdid-Hvczgji in Rash Medium 08/26/2021 Diroximel Fumarate Hives,Rash,Fever,Red [...] History of COVID-19 01/17/2023 Multiple sclerosis 08/26/2021 Immunizations Immunization Administration Dates Next Due COVID-19 mRNA (HyprKey) 0.3 m L (30 mcg) vaccine (12 [...] Conjugate, Unspecified 02/06,2000,2000,04/06 Tdap 10/11/2021,05/11/2011 Varicella 05/07/2014,04/28/2005 Social History Tobacco Use Types Packs/Day Years Used Date Smoking Tobacco: Never Tobacco Cessation:Counseling Given: Not Answered Sex and Gender Information Value Date Recorded Sex Assigned at Not on file 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 Does NOT exclude the possibility of recent exposure to HCV. Blood 08/26/2021 3:19 PM SPOT REMOVER 08/26/2021 3:34 PM SPOT REMOVER Sudarshan Dinero MD PhD LAB MICROBIOLOGY - GEN ERAL ORDERABLES Edited Result - Final [facility] Department [place] [address] from Last 3 Months or Most Recently Relevant to Health Maintenance Insurance [facility] Care Teams Field Enumerator Relationship Specialty Start Date End Date Jonathon Ferrell MD PCP - General Family Medicine 01/20/23
[2024-11-14 18:05] LABS: Basophils Percent Auto 0.5 % (0.2-1.2); Eosinophils Absolute Auto 0.1 K/mm3 (0-0.3); Eosinophils Percent Auto 1.1 % (0-4.4); Hematocrit 46.6 % (42.0-52.0); Hemoglobin 15.5 g/dL (14.0-18.0); Immature Granulocyte Absolute 0.02 K/mm3 (0.00-0.031); Immature Granulocyte Percent A 0.3 % (0-0.5); Lymphocytes Absolute Auto 1.34 K/mm3 (0.9-3.2); Lymphocytes Percent Auto 21.9 % (18.3-44.2); Mean Corpuscular HGB Conc 33.3 g/dl (32-36); Mean Corpuscular Hemoglobin 31.1 pg (26-34); Mean Corpuscular Volume 93.4 fl (80-100); Mean Platelet Volume 9.1 fl (7.4-10.4); Monocytes Absolute Auto 0.5 K/mm3 (0.1-0.6); Monocytes Percent Auto 8.2 % (2.6-8.5); Neutrophils Absolute Auto 4.2 K/mm3 (1.3-6.7); Platelet Count Result 257 k/mm3 (150-375); Red Blood Count 4.99 M/mm3 (4.6-6.20); Red Cell Distribution Width 12.3 % (11.5-14.5); White Blood Count 6.1 K/mm3 (4.5-10.0)
[2024-11-14 18:15] LABS: Alanine Aminotransferase 22 U/L (6-50); Albumin Level 4.7 g/dL (3.5-5.1); Alkaline Phosphatase 57 U/L (38-126); Anion Gap 8 mmol/L (4-12); Aspartate Amino Transferase 24 U/L (17-59); Bilirubin,Total 0.8 mg/dL (0.2-1.3); Blood Urea Nitrogen 20 mg/dL (9-20); Calcium 8.9 mg/dL (8.4-10.2); Carbon Dioxide 29 mmol/L (22-30); Chloride 101 mmol/L (98-107); Estimated Glomerular Filt Rate > 60; Glucose 100 mg/dL (65-110); Potassium 3.6 mmol/L (3.4-5.0); Sodium 138 mmol/L (137-145)
[2024-11-14 18:24] LABS: Immunoglobulin G 656 mg/dL (700-1600); Immunoglobulin M 29 mg/dL (40-230)
== END 2024-11-14 17:29 | disposition home or self-care (01) ==
PROVIDERS: PCP Family Medicine
DX: G35 Multiple sclerosis (principal)
CPT/HCPCS: 36415; 80053; 82784; 85025